=== PATIENT | male | born 1955 | race Caucasian/White ===

== ENCOUNTER 2023-07-20 08:55 | Outpatient (OUT) | payer MEDICARE, OTHER, SELFPAY ==
--- NOTE | 2023-07-20 09:14 | ECG_ITS ---
[facility] Test Date: 2023-07-20 Pat Name: GABRIEL BRAMBILA Department: Room: - Gender: Male Manager Of Manufacturing: : 1955 Requested By: [id number] Order Number: [id number] Reading MD: ISA CAMARA Measurements Intervals [place] Rate: 60 P: 62 GA: 142 QRS: 16 QRSD: 100 T: 21 QT: 392 QTc: 392 Interpretive Statements SINUS RHYTHM LOW QRS VOLTAGE IN EXTREMITY LEADS [QRS DEFLECTION < 0.5 mV IN LIMB LEADS] No previous ECG available for comparison Electronically Signed On 07-21-2023 6:49:48 EDT by ISA CAMARA
[2023-07-20 09:44] LABS: Basophils Absolute Auto 0.1 10^3/uL (0.0-0.1); Basophils Percent Auto 0.9 % (0.2-2.0); Eosinophils Absolute Auto 0.3 10^3/uL (0.0-0.7); Eosinophils Percent Auto 3.8 % (0.9-7.0); Hematocrit 42.7 % (42.0-54.0); Hemoglobin 13.9 g/dL (14.0-18.0); Immature Granulocytes Abs Auto 0.01 10^3/uL (0.00-0.03); Immature Granulocytes Pct Auto 0.2 % (0.0-0.5); Lymphocytes Percent Auto 29.7 % (20.5-60.0); Mean Corpuscular HGB Conc 32.6 g/dL (29.9-35.2); Mean Corpuscular Hemoglobin 28.8 pg (25.9-34.0); Mean Corpuscular Volume 88.4 fL (80.0-94.0); Monocytes Absolute Auto 0.5 10^3/uL (0.3-0.8); Monocytes Percent Auto 7.3 % (1.7-12.0); Neutrophils Absolute Auto 3.8 10^3/uL (1.4-6.5); Neutrophils Percent Auto 58.1 % (43.0-75.0); Platelet Count 229 10^3/uL (150-450); Red Blood Count 4.83 10^6/uL (4.70-6.10); Red Cell Distribution Width 12.7 % (11.0-15.0); White Blood Count 6.6 10^3/uL (4.0-11.0)
[2023-07-20 09:59] LABS: BUN Creatinine Ratio 15.2; Calcium 8.6 mg/dL (8.5-10.1); Carbon Dioxide 27.9 mmol/L (21.0-32.0); Chloride 103 mmol/L (98-107); Estimated GFR (African America >60 (>=60); Estimated GFR (Non-African Ame >60 (>=60); Glucose 138 mg/dL (74-106); Potassium 3.9 mmol/L (3.5-5.1); Sodium 138 mmol/L (136-145)
== END 2023-07-20 08:56 | disposition home or self-care (01) ==
PROVIDERS: Visit Provider Urology
DX: Z01.810 Encounter for preprocedural cardiovascular examination (principal); Z01.812 Encounter for preprocedural laboratory examination; R97.20 Elevated prostate specific antigen [PSA]; E11.9 Type 2 diabetes mellitus without complications
CPT/HCPCS: 80048; 85025; 93005

== ENCOUNTER 2023-07-29 12:43 | Day surgery (SDC) | payer MEDICARE, OTHER, SELFPAY ==
[2023-07-20 09:29] VITALS: BP 124/71; PULSE 62; RESP 14; TEMP 36.2; O2SAT 95; BMI 27.1
[2023-07-29 12:46] VITALS: BP 163/83; PULSE 61; RESP 18; TEMP 36.6; O2SAT 97; BMI 26.6
[2023-07-29] MEDS: LACTATED RINGER'S SOLUTION 1,000 ML 50 ML IV (13:05)
[2023-07-29] MEDS: CEFAZOLIN SODIUM/DEXTROSE,ISO 2 GM/50 ML PIGGYBACK IV (14:05)
--- NOTE | 2023-07-29 14:21 | PM.URSON ---
Urology Surgery Operative Note Operative Note Procedure Date: 07/29/23 Time Out Performed: yes Pre-op Diagnosis: 1. Elevated PSA 2. Abnormal MRI Post-op Diagnosis: same as pre-op Procedures performed: 1. MRI fusion prostate biopsy, transperineal approach 2. Ultrasound for needle prostate biopsy, transperineal approach 3. Transrectal ultrasound of prostate and seminal vesicles 4. Nerve block of prostate Anesthesia: MAC (Job Conn RACE RELATIONS ADVISER) Primary Surgeon: Sonal Ocampo Complications: none Estimated blood loss (mL): 1 Findings: BONNIE benign, mildly enlarged. No discrete hypoechoic lesions. SVs wnl. SLAUD slightly left midline anterior apex. Volume 30.3 cc (4.9 x 2.8 x 4.2 cm). [facility] radiologists calculated volume 28 cc ([facility] MRI volume 57cc). Uneventful biopsy per below. Specimens: 1. Right posterior medial (2 cores) 2. Right posterior lateral (2 cores) 3. Right base (2 cores) 4. Right anterior lateral (2 cores) 5. Right anterior medial (2 cores) 6. Left anterior medial (2 cores) 7. Left anterior lateral (2 cores) 8. Left base (2 cores) 9. Left posterior lateral (2 cores) 10. Left posterior medial (2 cores) 11. 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 MP-MRI prostate 06/30/23 showed PIRADS 4 lesion in the transition zone, apex. Prostate volume 57 ml. Prior TRUS prostate biopsy 07/[address] Garcia showed HGPIN in left apex, volume 28 cc at that time. After discussion of risks/benefits of management options and biopsy approaches, he elected to proceed with MRI fusion transperineal prostate biopsy. Risks were discussed to include but not limited to bleeding, pain, infection, damage to surrounding structures, hematuria, difficulty urinating, ecchymosis, swelling, injury from positioning, and need for additional procedures. Detailed description of Procedure: After informed consent was obtained, the patient was brought to the operating suite and transferred onto the operating table in supine position. Sequential compression devices were placed on bilateral lower extremities. He received the appropriate dose of preoperative IV antibiotics (Cefazolin 2 g) and MAC was induced. He was positioned in the dorsal lithotomy position with scrotum secured out of the perineum with tape, and the appropriate pressure points padded, prepped and draped in the usual fashion for this procedure. An operative timeout was performed confirming the patient's identity, procedure and safety checks. A digital rectal exam was performed noting findings as above. The [employer]umpTop UroNav MRI fusion biopsy system was set up over the patient's pelvis for transperineal approach of prostate biopsy. A well lubricated biplane transrectal ultrasound probe was inserted into the rectum and the prostate was aligned. The gland was visualized fully in axial and sagittal views to allow for identification of anatomy, volume and location of the urethra as noted in findings. The Precision Point device was placed on the ultrasound probe for transperineal approach. The skin followed by periprostatic local anesthetic lidocaine 1% was delivered. After rendering of real-time images with the preoperative MRI prostate, the UroNav fusion biopsy system was used to target the region of interest. Four core needle biopsies were obtained from the region of interest. Thereafter two biopsies were obtained in a systematic fashion from 10 regions of the prostate including the medial and lateral aspects of the anterior and posterior prostate, as well as base of the right and left lobes. The ultrasound probe was removed and the perineum was cleaned and dressed with antibiotic ointment, fluffs and scrotal support. Adequate hemostasis was achieved. The patient was awakened from anesthesia and sent to PACU in stable condition. Plan: Void prior to discharge home. Follow up in 1-2 weeks for pathology review. Other Provider present: No Post Operative care instructions: see discharge instructions
[2023-07-29] MEDS: BACITRACIN OINTMENT 28.4 GM TUBE 1 APPLIC TOPICAL (14:40)
[2023-07-29] MEDS: LIDOCAINE HCL 1% 100 MG/10 ML MDV INJ (14:40)
[2023-07-29 14:55] VITALS: BP 104/68; PULSE 55; RESP 14; TEMP 36.1; O2SAT 95
[2023-07-29 15:10] VITALS: BP 131/92; PULSE 64; RESP 16; O2SAT 95
[2023-07-29 15:25] VITALS: BP 141/88; PULSE 57; RESP 14; O2SAT 96
--- OUTSIDE RECORDS SUMMARY | 2023-09-08 14:22 | XMS_ITS | CCD ---
Author Name Unknown Address [address] [place] [address] Organization [facility] Care Team Providers Care Dockmaster Name Role Phone Hank MARTINEZ Primary Care Physician Hank Martinez MD Primary Care Provider [phone] HANK MARTINEZ Primary Care Unavailable CHRISS PORTER Attending Unavailable MD Sonal Ocampo Attending Provider [phone] MD Aston Martinez Primary Care Provider [phone] MD Sonal Ocampo Attending Provider MD Aston Martinez Primary Care Provider [phone] Sonal Ocampo Admitting Unavailable Sonal Ocampo Attending Unavailable Aston Martinez Primary Care Unavailable Chun Sal Attending Unavailable Sonal Ocampo Referring Unavailable Aston Martinez Primary Care Unavailable Chun Sal Admitting Unavailable Sonal Ocampo. Admitting Unavailable Sonal Ocampo Attending Unavailable Sonal Ocampo Attending Unavailable Pawel GARCIA Attending Unavailable Sonal Ocampo Attending Unavailable Sonal Ocampo Attending Unavailable Sonal Ocampo Attending Unavailable Pawel GARCIA Attending Unavailable Pawel GARCIA Admitting Unavailable Allergies Allergy Classification Reported Allergen(s) Allergy Type Date of Onset Reaction(s) Facility (1 source) Unable to Assess Drug allergy (disorder) [address] [place] [address] Repository (1 source) No Known Medication Allergies; Translations: [No Known Medication Allergies] Propensity to adverse reactions (disorder) [facility] Repository Medications Current Medications Medication Drug Class(es) Dates Sig (Normalized) Sig (Original) ciprofloxacin 500 mg oral tablet (2 sources) Quinolone Antimicrobial Start: 07-01-2022 take 1 tablet by mouth twice daily Cipro 500 mg Tab 500 mg = 1 tab(s), Oral, BID, start 3 days prior to procedure., # 14 tab(s), Refills(s) 0, Pharmacy: [facility] #[id number], 181, cm, 07/01/22 10:32:00 EDT, Height/Length Dosing, 87.7, kg, 07/01/22 10:32:00 EDT, Weight Dosing Start Date: 07/01/22 Status: Ordered tadalafil 20 mg oral tablet (8 sources) Phosphodiesterase 5 Inhibitor Start: 12-24-2020 take 1 tablet by mouth once daily as needed Cialis 20 mg Tab 20 mg = 1 tab(s), Oral, Daily, PRN for erectile dysfunction, as needed for ED, # 9 tab(s), Refills(s) 1, Pharmacy: [facility], 181.6, cm, 12/24/20 13:21:00 EDT, Height/Length Dosing, 94.4, kg, 12/24/20 13:21:00 EDT, Weight Dosing Start Date: 12/24/20 Status: Ordered Triamcinolone (8 sources) Corticosteroid Start: 05-20-2022 triamcinolone topical 0.5% cream 1 steve, Topical, BID, 15 gram, Refill(s) 1, [facility] #[id number], 181, cm, 05/20/22 14:52:00 EDT, Height/Length Dosing, 87.7, kg, 05/20/22 14:52:00 EDT, Weight Dosing Start Date: 05/20/22 Status: Ordered Start: 05-20-2022 triamcinolone topical 0.5% cream 1 steve, Topical, BID, 15 gram, Refill(s) 1, [facility] #[id number], 181, cm, 05/20/22 14:52:00 EDT, Height/Length Dosing, 87.7, kg, 05/20/22 14:52:00 EDT, Weight Dosing Start Date: 05/20/22 Status: Ordered Completed/Discontinued Medications Medication Drug Class(es) Dates Sig (Normalized) Sig (Original) 10 ml lidocaine hydrochloride 10 mg/ml injection (1 source) Antiarrhythmic, Amide Local Anesthetic Start: 12-23-2022 End: 12-23-2022 lidocaine 1 % injection 10 mL Problems Problem Classification Problem Date Documented Date Episodic/Chronic Allergic reactions (9 sources) Atopic dermatitis; Translations: [Atopic dermatitis, unspecified] Onset: 05-20-2022 Chronic Cancer of prostate (6 sources) Malignant neoplasm of prostate; Translations: [Malignant tumor of prostate] Onset: 08-10-2023 Chronic Hyperplasia of prostate (9 sources) Benign prostatic hypertrophy without outflow obstruction; Translations: [Benign prostatic hyperplasia without lower urinary tract symptoms] Onset: 05-20-2022 Chronic Open wounds of extremities (2 sources) Laceration of left wrist; Translations: [Laceration without foreign body of left wrist, initial encounter] Onset: 12-23-2022 Episodic Other male genital disorders (14 sources) Male erectile dysfunction, unspecified; Translations: [Erectile dysfunction] Onset: 05-19-2022 Chronic Other male genital disorders (7 sources) Prostatic intraepithelial neoplasia; Translations: [Prostatic intraepithelial neoplasia] Onset: 08-12-2022 Episodic Other nutritional; endocrine; and metabolic disorders (10 sources) Overweight; Translations: [Overweight] Onset: 05-19-2022 Episodic Other nutritional; endocrine; and metabolic disorders (9 sources) Overweight in adulthood with body mass index of 25 or more but less than 30; Translations: [Body mass index (BMI) 26.0-26.9, adult] Onset: 05-20-2022 Episodic Other screening for suspected conditions (not mental disorders or infectious disease) (20 sources) Encounter for screening for malignant neoplasm of prostate; Translations: [Screening for malignant neoplasm done] Onset: 05-19-2022 Episodic Unclassified (20 sources) Patient encounter status 12-24-2020 Unclassified (8 sources) Seborrheic keratosis 12-24-2020 Unclassified (3 sources) Non-smoker 06-01-2023 Results Test Name Value Interpretation Reference Range Facil ity Consultation Noteon 08-28-20 Consultation Note [id number] Normal [facility] Lab Reportson 08-25-2023 Lab Reports [id number] IFF Normal [facility] Pathology Noteon 08-17-2023 Pathology Note [id number] 0TIFF [facility] Screenson 08-12-2023 Screens [id number] IFF Normal [facility] Screens [id number] IFF Normal [facility] Formson 08-11-2023 Forms [id number] F [facility] Ambulatory Visit Summaryon 1 10-10-2022 Ambulatory Visit Summary GABRIEL RIVERA :1955 Visit Date:08/10/2023 Ambulatory Visit Instructions Your Diagnosis Prostate cancer PIN (prostatic intraepithelial neoplasia) Erectile dysfunction Your Care Team Attending Physician - Sonla Ocampo MD Primary Care Physician - Hank MARTINEZ MD This Is Your Medications List Contact prescribing physician if questions or concerns tadalafil (Cialis 20 mg Tab) triamcinolone topical (triamcinolone topical 0.5% cream) Procedures Performed Transrectal biopsy of prostate using ultrasound (US) guidance (07/23/2022), Colonoscopy (01/25/2021), None. Discharge Vitals Heart Rate (Peripheral) 64 Blood Pressure 139/81 Height 181 cm Height 71 in Weight 87.7 kg Weight 192.94 lb BMI 26.77 What to do next Scheduled Follow-Up Appointments Thursday 12:30 PM EST With: Sonal Ocampo MD Where: [facility] Patient Educationon 08-10-20 Patient Education Oncology Prostate Cancer The prostate is a small gland that produces fluid that makes up semen (seminal fluid). It is located below the bladder in men, in front of the rectum. Prostate cancer is the abnormal growth of cells in the prostate gland. What are the causes? The exact cause of this condition is not known. What increases the risk? You are more likely to develop this condition if: ? You are 65 years of age or older. ? You have a family history of prostate cancer. ? You have a family history of breast and ovarian cancer. ? You have genes that are passed from parent to child (inherited), such as BRCA1 and BRCA2. ? You have Daniels syndrome. men and men of descent are diagnosed with prostate cancer at higher rates than other men. The reasons for this are not well understood and are likely due to a combination of genetic and environmental factors. What are the signs or symptoms? Symptoms of this condition include: ? Problems with urination. This may include: ? A weak or interrupted flow of urine. ? Trouble starting or stopping urination. ? Trouble emptying the bladder all the way. ? The need to urinate more often, especially at night. ? Blood in urine or semen. ? Persistent pain or discomfort in the lower back, lower abdomen, or hips. ? Trouble getting an erection. ? Weakness or numbness in the legs or feet. How is this diagnosed? This condition can be diagnosed with: ? A digital rectal exam. For this exam, a health care provider inserts a gloved finger into the rectum to feel the prostate gland. ? A blood test called a prostate-specific antigen (PSA) test. ? A procedure in which a sample of tissue is taken from the prostate and checked under a microscope (prostate biopsy). ? An imaging test called transrectal ultrasonography. Once the condition is diagnosed, tests will be done to determine how far the cancer has spread. This is called staging the cancer. Staging may involve imaging tests, such as a bone scan, CT scan, PET scan, or MRI. Stages of prostate cancer The stages of prostate cancer are as follows: ? Stage 1 (I). At this stage, the cancer is found in the prostate only. The cancer is not visible on imaging tests, and it is usually found by accident, such as during prostate surgery. ? Stage 2 (II). At this stage, the cancer is more advanced than it is in stage 1, but the cancer has not spread outside the prostate. ? Stage 3 (III). At this stage, the cancer has spread beyond the outer layer of the prostate to nearby tissues. The cancer may be found in the seminal vesicles, which are near the bladder and the prostate. ? Stage 4 (IV). At this stage, the cancer has spread to other parts of the body, such as the lymph nodes, bones, bladder, rectum, liver, or lungs. Prostate cancer grading Prostate cancer is also graded according to how the cancer cells look under a microscope. This is called the Rocio score and the total score can range from 6?10, indicating how likely it is that the cancer will spread (metastasize) to other parts of the body. The higher the score, the greater the likelihood that the cancer will spread. ? [place] 6 or lower: This indicates that the cancer cells look similar to normal prostate cells (well differentiated). ? [place] 7: This indicates that the cancer cells look somewhat similar to normal prostate cells (moderately differentiated). ? [place] 8, 9, or 10: This indicates that the cancer cells look very different than normal prostate cells (poorly differentiated). How is this treated? Treatment for this condition depends on several factors, including the stage of the cancer, your age, personal preferences, and your overall health. Talk with your health care provider about treatment options that are recommended for you. Common treatments include: ? Observation for early stage prostate cancer (active surveillance). This involves having exams, blood tests, and in some cases, more biopsies. For some men, this is the only treatment needed. ? Surgery. Types of surgeries include: ? Open surgery (radical prostatectomy). In this surgery, a larger incision is made to remove the prostate. ? A laparoscopic radical prostatectomy. This is a surgery to remove the prostate and lymph nodes through several small incisions. It is often referred to as a minimally invasive surgery. ? A robotic radical prostatectomy. This is laparoscopic surgery to remove the prostate and lymph nodes with the help of robotic arms that are controlled by the surgeon. ? Cryoablation. This is surgery to freeze and destroy cancer cells. ? Radiation treatment. Types of radiation treatment include: ? External beam radiation. This type aims beams of radiation from outside the body at the prostate to destroy cancerous cells. ? Brachytherapy. This type uses radioactive needles, seeds, wires, or tubes that are implanted into the prostate gland. Like external be (more content not included)... Normal [facility] Urology Office/Clinic Noteon 08-10-2023 Urology Office/Clinic Note Chief Complai nt fu to mri HPI Staff 68 yea old mal here for F/U to MRI fusion prostate biopsy done 07/29/23. Previous DX: elevated PSA, PIN (high grade PIN, Lt. apex) and ED. S/P TRUS/BX 07/23/22. Pt. taking Cialis 20mg PRN. Last PSA 9.4 with 9% done 06/05/23 Dysuria: no Incomplete bladder emptying: no Hematuria: no Frequency: no Urgency: no Nocturia: 1x Stream: good stream Leaking: no Post void dripping: no Wearing pads/ Depends: no Urge incontinence: no Stress incontinence: no Incontinence without Sensory Awareness: no Abdominal pain: no Flank pain: no Sexual complaints: no History of Present Illness Tests reviewed: Reviewed MRI of prostate and path report. I have reviewed the previous health record information and history for this patient from Dr. Ocampo. I have reviewed and verified the staff HPI to be accurate for this encounter. There have been no associated fever, chills, flank pain, or blood in the urine. Denies any urinary infections since last encounter. Review of Systems PHQ Score Initial Depression Screen Score: 0 SCORE ROS - Provider Constitutional: denies weight loss, denies hot flashes. Eyes: denies eye problems. Gastrointestinal: denies nausea, denies vomiting. Cardiovascular: denies chest pain or angina. Integumentary: no dryness Musculoskeletal: denies musculoskeletal symptoms. ENMT: denies otolaryngeal symptoms. Respiratory: no shortness of breath. Heme/Lymph: denies easy bleeding tendency, denies easy bruising tendency. Psychiatric: no confusion, no anxiety. Genitourinary: See HPI. Physical Exam Vitals & Measurements HR: 64(Peripheral) BP: 139/81 HT: 71 in HT: 181 cm WT: 87.7 kg WT: 192.94 lb BMI: 26.77 General Appearance: alert, no distress, well nourished, well developed male. Genitourinary: Flank Pain: none. Bladder: nonpalpable. Assessment/Plan 68 year old healthy male former [facility] patient with hx of elevated PSA and HGPIN Denies hx of heart attack or stroke, not taking any blood thinners. Pt here with today Portions of this record may have been created with voice recognition artificial intelligence software, specifically [employer], [employer] and or [employer] Substitutions may have occurred due to the inherent limitations of voice recognition and artificial intelligence software. 1. Prostate cancer (C61: Malignant neoplasm of prostate) S/p TRUS/bx 07/23/22 [facility]WR - path negative. Prostate volume 28 cc PSA: 05/27/22 - 6.1 & 11% 03/03/23 - 9.8 & 9% 06/05/23 - 9.4 & 9% IPSS 5 (4) No UA provided today. No current issues with urination. Denies family hx of prostate cancer. Mother had ovarian cancer. MRI prostate 06/29/23 prostate volume 57 mL. Lesion involving the transitional zone at the level of the apex measuring 9 x 9 mm. PI-RADS 4. Prostate volume 28-30 cc ([facility] MRI volume incorrect) S/p MRI fusion prostate bx 07/29/23: GG2+ SALUD midline apex, transitional zone 68 year-old gentleman here to discuss his prostate biopsy results on 07/29/23. He has newly diagnosed cT1c disease, [place]a 7 (3+4), Grade group 2, prostate cancer in 1/21 cores (SALUD apex midline transitional zone), 30% core involvement, pattern 4 is 10% initial PSA of 9.4. I explained the D'Kelly criteria for risk stratification of prostate cancer which indicates that he has favorable intermediate risk disease. I educated him on the national comprehensive cancer network guidelines on the treatment of prostate cancer which indicates his options include: active surveillance, surgery, and radiation therapy. I discussed the advantages of each of his options at length. Active surveillance involves monitoring the disease with the intention of curative intervention in the future if more concerning findings are seen. This involves PSAs every 6-12 months, rectal exams every 12 months, confirmatory prostate biopsy within 1-2 years of diagnosis if MRI used (6-12 months if no MRI prostate) and MP MRI prostate every 1-2 years initially. He understands the uncertainties with this approach including the risk of understaging, undergrading and therefore under-treatment. However, this option is associated with preserved quality of life due to its avoidance of most treatment related side effects. I discussed radical prostatectomy with pelvic lymph node dissection including robot-assisted laparoscopic and open approaches. I showed him the [facility] nomogram which estimates his risk of organ confined disease to be 75%, extraprostatic extension 24%, lymph node metastasis 2%, and seminal vesical invasion 1%. He understood the risks of the procedure include but are not be limited to bleeding, need for transfusion, pain, infection, injury to the bladder, ureter, urethra, urinary sphincter, surrounding tissues, injury to the bowels including the rectum, small intestines, permanent erectile dysfunction, incontinence, urinary leakage, bladder neck contracture or anastomotic stricture, bowel ob (more content not included)... Normal [facility] Comment on above: Result Comment: Elec tronically Signed By: Sonal Ocampo MD\.br\Date and Time Signed: 08/10/23 19:56 EST\.br\Electronically Co-Signed By: Cecilia Latham\.br\Date and Time Co-Signed: 08/10/23 16:54 EST\.br\Electronically Co-Signed By: Cecilia Latham\.br\Date and Time Co-Signed: 08/10/23 16:56 EST Operative Reporton 3 Operative Report [id number] [facility] Lab Reportson 07-21-2023 Lab Reports [id number] IFF [facility] RAD - MRI Reporton 3 RAD - MRI Report [id number] [facility] MR prostate wo/w conon 06-30 MR prostate wo/w con [facility] [place] [address] MRI Report Signed Patient: Gabriel Rivera MR#: [id number] : 1955 Acct:[id number] Age/Sex: 68 / M ADM Date: 06/29/23 Loc: MR Room: Type: [facility] Attending Dr: Sonal Ocampo MD Copies to: Sonal Ocampo MD Ordering Provider: Sonal Ocampo MD Date of Service: 06/29/23 MR/MR prostate wo/w con: R97.20 EXAMINATION: MR prostate wo/w con HISTORY: Elevated PSA COMPARISON: NONE TECHNIQUE: Multiparametric imaging of the prostate gland was performed with IV contrast. FINDINGS: Prostate Dimensions: 5.1 x 4.1 x 5.2 cm Prostate Volume: 57 mL Peripheral Zone: Heterogenous inT2 signal suggestive of prior prostatitis. No suspicious T2 or ADC map abnormality is identified to suggest prostate malignancy. Central/Transitional Zone: BPH changes. Ill-defined T2 hypointensity is identified involving the transitional zone at the level of the apex measuring approximately 9 x 9 mm with restricted diffusion and low ADC value. Please see series 5 image 20, series 7 50 image 18 and series 700 image 18. Seminal Vesicles: Unremarkable Neurovascular bundles: Unremarkable. Lymphadenopathy: No evidence of lymphadenopathy. Bladder: No focal lesion. Bowel: The visualized bowel is without acute abnormality. Peritoneal Cavity: No free fluid. Bones: No suspicious bony lesion. MR/MR prostate wo/w con IMPRESSION: Ill-defined T2 hypointensity is identified involving the transitional zone at the level of the apex measuring approximately 9 x 9 mm with restricted diffusion and low ADC value. Please see series 5 image 20, series 7 50 image 18 and series 700 image 18.PI-RADS 4. Targeting of this area on biopsy is recommended. Impression dictated by: Kristofer Cameron Jr., D.O.06/30/2023 9:37 AM Dictation Location: [place] [address] Transcribed By: [facility] 06/30/23936 Dictated By: Kristofer Cameron Jr, DO 06/30/23926 Signed By: 06/30/23936 [facility] Creatinine (Bld) [Mass/Vol]O rdered By: Sonal Ocampo on 06-29-2023 Creatinine [Mass/Vol] 1.2 mg/dL 0.6-1.3 [facility] Comment on above: ER/ESD physician is notified/shown all ISTAT results.Critical values may be confirmed by laboratory testing ifdeemed necessary by ER attending doctor. ISTAT XRay CREon 06-29-2023 Creatinine [Mass/Vol] 1.2 mg/dL Normal 0.6-1.3 [facility] Comment on above: Result Comment: ER/E SD physician is notified/shown all ISTAT results. Critical values may be confirmed by laboratory testing if deemed necessary by ER attending doctor. Performed By: #### I SCRE #### [facility] [address] [place] [address] ISTAT GFR > 60.0 Normal [facility] Comment on above: Result Comment: PERF ORMED BY: [facility] [address] [place] [address] PATHOLOGIST FOOD CHEMIST ROBERTO GONSALEZ M.D. Performed By: #### I SCRE #### [facility] [address] No Panel InformationOrdered By: Sonal Ocampo on 06-29-2023 Bedside Estimated GFR (eGFR) > 60.0 [facility] Screenson 06-02-2023 Screens [id number] D:127 Normal [facility] Screens [id number] D:127 Normal [facility] Ambulatory Visit Summaryon 0 06-01-2023 Ambulatory Visit Summary GABRIEL RIVERA :1955 Visit Date:06/01/2023 Ambulatory Visit Instructions Your Diagnosis Elevated PSA PIN (prostatic intraepithelial neoplasia) Erectile dysfunction Tests Performed Urnls Dip Stick Auto w/o Microscopy POC 53444 MRI Pelvis (Soft Tissue) w/ + w/o contrast -- Results Pending -- Please visit your patient portal for your results or contact your primary care physician. Your Care Team Attending Physician - Sonal Ocampo MD Primary Care Physician - Hank MARTINEZ MD This Is Your Medications List Contact prescribing physician if questions or concerns ciprofloxacin (Cipro 500 mg Tab) tadalafil (Cialis 20 mg Tab) triamcinolone topical (triamcinolone topical 0.5% cream) Procedures Performed Transrectal biopsy of prostate using ultrasound (US) guidance (07/23/2022), Colonoscopy (01/25/2021), None. Discharge Vitals Heart Rate (Peripheral) 76 Blood Pressure 135/79 Height 181 cm Height 71 in Weight 87.7 kg Weight 192.94 lb BMI 26.77 What to do next You Need to Schedule the Following Appointments Follow Up with Sonal Ocampo MD, URL, URO When: Where: Medications What How Much When Instructions Unchanged ciprofloxacin (Cipro 500 mg Tab) 1 Tablets By Mouth 2 times a day start 3 days prior to procedure. Contact prescribing physician if questions or concerns Unchanged tadalafil (Cialis 20 mg Tab) 1 Tablets By Mouth Every day as needed for for erectile dysfunction as needed for ED Contact prescribing physician if questions or concerns Unchanged triamcinolone topical (triamcinolone topical 0.5% cream) 1 Application Topical 2 times a day Contact prescribing physician if questions or concerns Test Results Urnls Dip Stick Auto w/o Microscopy POC 12899 (06/01/2023) Bilirubin Urine Dipstick - Negative Blood Urine Dipstick - Trace-intact Glucose Urine Dipstick - Negative Ketones Urine Dipstick - Negative Leukocytes Urine Dipstick - Negative Nitrite Urine Dipstick - Negative Protein Urine Dipstick - Negative Specific [place] Urine Dipstick - 1.025 Urine Appearance Urine Dipstick - Clear Urine Color Urine Dipstick - Yellow Urobilinogen Urine Dipstick - Normal 0.2-1 EU/dl pH Urine Dipstick - 5.5 Allergies No Known Allergies No Known Medication Allergies Problems Ongoing - Any problem that you are currently receiving treatment for. Atopic dermatitis BMI 26.0-26.9,adult BPH without urinary obstruction Diabetes mellitus screening Elevated prostate specific antigen (PSA) Elevated PSA Encounter for lipid screening for cardiovascular disease Erectile dysfunction Non-smoker Overweight PIN (prostatic intraepithelial neoplasia) Prostate cancer screening Seborrheic keratosis Education [employer] Prostate Cancer Screening Prostate cancer screening is testing that is done to check for the presence of prostate cancer in men. The prostate gland is a walnut-sized gland that is located below the bladder and in front of the rectum in males. The function of the prostate is to add fluid to semen during ejaculation. Prostate cancer is one of the most common types of cancer in men. Who should have prostate cancer screening? Screening recommendations vary based on age and other risk factors, as well as between the professional organizations who make the recommendations. In general, screening is recommended if: ? You are age 50 to 70 and have an average risk for prostate cancer. You should talk with your health care provider about your need for screening and how often screening should be done. Because most prostate cancers are slow growing and will not cause , screening in this age group is generally reserved for men who have a 10- to 15-year life expectancy. ? You are younger than age 50, and you have these risk factors: ? Having a father, brother, or uncle who has been diagnosed with prostate cancer. The risk is higher if your family member's cancer occurred at an early age or if you have multiple family members with prostate cancer at an early age. ? Being a male who is Black or is of [place] or sub-Saharan descent. In general, screening is not recommended if: ? You are younger than age 40. ? You are between the ages of 40 and 49 and you have no risk factors. ? You are 70 years of age or older. At this age, the risks that screening can cause are greater than the benefits that it may provide. If you are at high risk for prostate cancer, your health care provider may recommend that you have screenings more often or that you start screening at a younger age. How is screening for prostate cancer done? The recommended prostate cancer screening test is a blood test called the prostate-specific antigen (PSA) test. PSA is a protein that is made in the prostate. As you age, your prostate naturally produces more PSA. Abnormally high PSA levels may be caused by: ? Pro (more content not included)... Normal [facility] Patient Educationon 06-01-20 Patient Education Oncology Prostate Cancer Screening Prostate cancer screening is testing that is done to check for the presence of prostate cancer in men. The prostate gland is a walnut-sized gland that is located below the bladder and in front of the rectum in males. The function of the prostate is to add fluid to semen during ejaculation. Prostate cancer is one of the most common types of cancer in men. Who should have prostate cancer screening? Screening recommendations vary based on age and other risk factors, as well as between the professional organizations who make the recommendations. In general, screening is recommended if: ? You are age 50 to 70 and have an average risk for prostate cancer. You should talk with your health care provider about your need for screening and how often screening should be done. Because most prostate cancers are slow growing and will not cause , screening in this age group is generally reserved for men who have a 10- to 15-year life expectancy. ? You are younger than age 50, and you have these risk factors: ? Having a father, brother, or uncle who has been diagnosed with prostate cancer. The risk is higher if your family member's cancer occurred at an early age or if you have multiple family members with prostate cancer at an early age. ? Being a male who is Black or is of [place] or sub-Saharan descent. In general, screening is not recommended if: ? You are younger than age 40. ? You are between the ages of 40 and 49 and you have no risk factors. ? You are 70 years of age or older. At this age, the risks that screening can cause are greater than the benefits that it may provide. If you are at high risk for prostate cancer, your health care provider may recommend that you have screenings more often or that you start screening at a younger age. How is screening for prostate cancer done? The recommended prostate cancer screening test is a blood test called the prostate-specific antigen (PSA) test. PSA is a protein that is made in the prostate. As you age, your prostate naturally produces more PSA. Abnormally high PSA levels may be caused by: ? Prostate cancer. ? An enlarged prostate that is not caused by cancer (benign prostatic hyperplasia, or BPH). This condition is very common in older men. ? A prostate gland infection (prostatitis) or urinary tract infection. ? Certain medicines such as male hormones (like testosterone) or other medicines that raise testosterone levels. A rectal exam may be done as part of prostate cancer screening to help provide information about the size of your prostate gland. When a rectal exam is performed, it should be done after the PSA level is drawn to avoid any effect on the results. Depending on the PSA results, you may need more tests, such as: ? A physical exam to check the size of your prostate gland, if not done as part of screening. ? Blood and imaging tests. ? A procedure to remove tissue samples from your prostate gland for testing (biopsy). This is the only way to know for certain if you have prostate cancer. What are the benefits of prostate cancer screening? ? Screening can help to identify cancer at an early stage, before symptoms start and when the cancer can be treated more easily. ? There is a small chance that screening may lower your risk of dying from prostate cancer. The chance is small because prostate cancer is a slow-growing cancer, and most men with prostate cancer from a different cause. What are the risks of prostate cancer screening? The main risk of prostate cancer screening is diagnosing and treating prostate cancer that would never have caused any symptoms or problems. This is called overdiagnosisand overtreatment. PSA screening cannot tell you if your PSA is high due to cancer or a different cause. A prostate biopsy is the only procedure to diagnose prostate cancer. Even the results of a biopsy may not tell you if your cancer needs to be treated. Slow-growing prostate cancer may not need any treatment other than monitoring, so diagnosing and treating it may cause unnecessary stress or other side effects. Questions to ask your health care provider ? When should I start prostate cancer screening? ? What is my risk for prostate cancer? ? How often do I need screening? ? What type of screening tests do I need? ? How do I get my test results? ? What do my results mean? ? Do I need treatment? Where to find more information ? The [place] [employer]: www.cancer.org ? [place] [employer]: www.auanet.org Contact a health care provider if: ? You have difficulty urinating. ? You have pain when you urinate or ejaculate. ? You have blood in your urine or semen. ? You have pain in your back or in the area of your prostate. Summary ? Prostate cancer is a common type of cancer in men. The prostate gland is located below the bladder and in front of the rectum. This gland adds flu (more content not included)... Normal [facility] Urology Office/Clinic Noteon 06-01-2023 Urology Office/Clinic Note Chief Complaint 3 mo fu HPI Staff 68 year old male here for 3 month follow up with psa Previous Dx: high grade PIN, Elevated psa S/P negative trus bx done 07/23/22, ED Current psa drawn 05/26/23- 9.4 and 9%, Previously 9.8 and 9% drawn 03/03/23 Dysuria: no Incomplete bladder emptying: no Hematuria: no Frequency: no Urgency: no Nocturia: 2x night Stream: good stream Leaking: no Post void dripping: no Wearing pads/ Depends: no Urge incontinence: no Stress incontinence: no Incontinence without Sensory Awareness: no Abdominal pain: no Flank pain: no Sexual complaints: no History of Present Illness Tests reviewed: Reviewed UA and PSA. I have reviewed the previous health record information and history for this patient from Dr. Garcia. I have reviewed and verified the staff HPI to be accurate for this encounter. There have been no associated fever, chills, flank pain, or blood in the urine. Denies any urinary infections since last encounter. Review of Systems PHQ Score Initial Depression Screen Score: 0 ROS - Provider Constitutional: denies weight loss, denies hot flashes. Eyes: denies eye problems. Gastrointestinal: denies nausea, denies vomiting. Cardiovascular: denies chest pain or angina. Integumentary: no dryness Musculoskeletal: denies musculoskeletal symptoms. ENMT: denies otolaryngeal symptoms. Respiratory: no shortness of breath. Heme/Lymph: denies easy bleeding tendency, denies easy bruising tendency. Psychiatric: no confusion, no anxiety. Genitourinary: See HPI. Physical Exam Vitals & Measurements HR: 76(Peripheral) BP: 135/79 HT: 71 in HT: 181 cm WT: 87.7 kg WT: 192.94 lb BMI: 26.77 General Appearance: alert, no distress, well nourished, well developed male. Genitourinary: Flank Pain: none. Bladder: nonpalpable. Assessment/Plan Former [facility] patient with hx of elevated PSA and HGPIN Denies hx of heart attack or stroke, not taking any blood thinners. Portions of this record may have been created with voice recognition artificial intelligence software, specifically [employer], [employer] and or [employer] Substitutions may have occurred due to the inherent limitations of voice recognition and artificial intelligence software. 1. Elevated PSA (R97.20: Elevated prostate specific antigen [PSA]) BONNIE 07/01/22 - 1 cm firm nodule found on the left base S/p TRUS/bx 07/23/22, path negative. Prostate volume 28 cc PSA: 05/27/22 - 6.1 & 11% 03/03/23 - 9.8 & 9% 06/05/23 - 9.4 & 9% IPSS 4, QoL 1. UA today trace-intact blood Denies family hx of prostate cancer Today I reviewed the patients past history including voiding symptoms, PSA history and any prior prostate biopsy information that is available. We discussed the controversies that exist in the field of PSA based cancer testing and the absence of exact correlation of PSA data to the presence or absence of prostate cancer on biopsy. I discussed the production of PSA by the prostate gland as well as common causes of elevated serum PSA including infection, inflammation, BPH and prostate cancer. He understood that his PSA level may also be falsely elevated due to any manipulation/instrumentation around the time of a PSA draw. I discussed the absolute value of PSA as well as PSA velocity and age specific PSA and the implications with the patient. We discussed risks of MRI fusion prostate biopsy approaches including transrectal and transperineal. Risks of the procedure were discussed to include but not be limited to bleeding, pain, infection (higher, including sepsis with transrectal approach), difficulties with urination, injury to the urethra, prostate or bladder or surrounding tissues, injury from positioning on the table, swelling and bruising of the skin, and need for further procedures. Added risk of anesthesia discussed. Given PSA rise over the last year, high PSA density 0.34 and hx HGPIN, recommend proceeding with MRI prostate and biopsy -Schedule MRI of prostate -Will schedule Transperineal prostate bx +/- MRI fusion based on MRI findings under MAC. (Bx regardless of lesion on MRI) 2. 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 Erectile dysfunction (N52.9: Male erectile dysfunction, unspecified) KWAME 14 Cialis 20mg PRN, happy w/ medication -Cont meds PRN I spent 40 minutes today with the patient: reviewing tests in preparation to see and discuss them with the patient, obtaining and reviewing separately obtained history, documenting clinical information in the electronic health records, and care coordination. Time was spent performing a medical exam and evaluation, counseling and educating the patient, and ordering tests and procedures in caring for the patient. Follow-up With When Contact Information Sonal Ocampo MD, URL, URO Additional Instructions: Schedule MRI Patient Education (more content not included)... Normal [facility] Comment on above: Result Comment: Elec tronically Signed By: Sonal Ocampo MD\.br\Date and Time Signed: 06/01/23 16:24 EDT\.br\Electronically Co-Signed By: Cecilia Latham\.br\Date and Time Co-Signed: 06/01/23 14:53 EDT Consent for Treatmenton Consent for Treatment [id number]:127 Normal [facility] PSA Free & Totalon 3 Free PSA [Mass/Vol] 0.8 ng/mL Invalid Interpretation Code [facility] Comment on above: Result Comment: The concentration of free PSA and total PSA determined with assays from different manufacturers can vary due to differences in assay methods and specificity. Values obtained with different director statistical programming's assays cannot be used interchangeably. The methodology used to obtain this result was chemiluminescence using ice's Access Hybritech PSA reagent and Access Hybritech free PSA reagent. Performed By: #### [id number] ####[facility] [id number] [place] [address] Free PSA/Total PSA [Mass fraction] 9.0 % Low > =25.0 [facility] Comment on above: Result Comment: The percentage of free PSA is lower in serum samples from patients with prostate cancer than in serum samples from patients with normal prostate or benign disease. Low percentages of free PSA are established as indicators of prostate cancer. The 25% free PSA cutoff detected 95% of cancers while avoiding 20% of Unnecessary biopsies. DWIGHT, 1998; 279:1542-7 Performed By: #### 1 [id number] ####[facility] [id number] [place] [address] Prostate specific Ag [Mass/Vol] 9.4 ng/mL High 0.1- 3.5 [facility] Comment on above: Result Comment: The concentration of PSA determined by different manufacturers can vary due to differences in assay methods and reagent specificity. Values obtained from different assay methods cannot be used interchangeably. The methodology used for this result was chemiluminescence using ice's Access Hybritech PSA reagent. Performed By: #### 1 [id number] ####[facility] [id number] [place] [address] Reminderson 03-11-2023 Reminders - From: Dianna Regalado To: - Clinical; Sent: 03/03/2023 12:33:01 EDT Show up: 03/10/2023 12:32:00 EDT Subject: Reminder Message Reminder Message Please Remember to:_call pt with PSA results PATIENT RELATED REMINDER:_ ( ) Call Patient ( ) Ask Patient to ( ) Call Relative ( ) Schedule Patient ( ) Follow up on Results ( ) Other: PROVIDER RELATED REMINDER:_ ( ) [employer] Lecturer ( ) Call Pharmacy ( ) Call Lab ( ) Other: Special Instructions:_ Comments:_ From: Susanna Colón ([place] - Clinical) To: [facility] - Results; Sent: 03/11/2023 14:14:01 EDT ! Show up: 03/11/2023 14:13:00 EDT Per EMR, has been addressed. Normal [facility] Ambulatory Visit Summaryon 0 03-04-2023 Ambulatory Visit Summary GABRIEL RIVERA :1955 Visit Date:06/02/2022 Ambulatory Visit Instructions Your Care Team Primary Care Physician - Hank MARTINEZ MD This Is Your Medications List ciprofloxacin (Cipro 500 mg Tab) tadalafil (Cialis 20 mg Tab) triamcinolone topical (triamcinolone topical 0.5% cream) Procedures Performed Transrectal biopsy of prostate using ultrasound (US) guidance (07/23/2022), Colonoscopy (01/25/2021), None. What to do next You Need to Complete the Following PSA Free & Total, Blood, Routine collect, 01/19/23, Order for future visit, Lab Collect, PIN (prostatic intraepithelial neoplasia) Normal [facility] Ambulatory Visit Summaryon 0 03-03-2023 Ambulatory Visit Summary GABRIEL RIVERA :1955 Visit Date:03/03/2023 Ambulatory Visit Instructions Your Diagnosis PIN (prostatic intraepithelial neoplasia) Elevated PSA Erectile dysfunction Tests Performed Urnls Dip Stick Auto w/o Microscopy POC 61469 Your Care Team Attending Physician - SHAMIR LIAO, Pawel Lu Primary Care Physician - Hank MARTINEZ MD This Is Your Medications List Contact prescribing physician if questions or concerns ciprofloxacin (Cipro 500 mg Tab) tadalafil (Cialis 20 mg Tab) triamcinolone topical (triamcinolone topical 0.5% cream) Procedures Performed Transrectal biopsy of prostate using ultrasound (US) guidance (07/23/2022), Colonoscopy (01/25/2021), None. Discharge Vitals Heart Rate (Peripheral) 58 Respiratory Rate 16 Blood Pressure 144/92 Height 181 cm Height 71 in Weight 87.7 kg Weight 192.94 lb BMI 26.77 What to do next You Need to Schedule the Following Appointments Follow Up with SHAMIR LIAO, LOGAN Galarza When: In 6 months Comments: PSA F&T Where: [address] [place] [address] [place] [address]- [phone] You Need to Complete the Following PSA Free & Total, Blood, Routine collect, 03/03/23, Order for future visit, Lab Collect, PIN (prostatic intraepithelial neoplasia) Normal Erectile dysfunction, Required & Missing, Print Label By Order Location\.br\ Medications\.br\ What How Much When Instructions\.br\ Unchanged ciprofloxacin (Cipro 500 mg Tab) 1 Tablets By Mouth 2 times a day start 3 days prior to procedure. Contact prescribing physician if questions or concerns \.br\ Unchanged tadalafil (Cialis 20 mg Tab) 1 Tablets By Mouth Every day as needed for for erectile dysfunction as needed for ED Contact prescribing physician if questions or concerns \.br\ Unchanged triamcinolone topical (triamcinolone topical 0.5% cream) 1 Application Topical 2 times a day Contact prescribing physician if questions or concerns \.br\ Test Results\.br\ Urnls Dip Stick Auto w/o Microscopy POC 00562 (03/03/2023)\.br\ Blood Urine Dipstick - Negative\.br\ Glucose Urine Dipstick - Negative\.br\ Ketones Urine Dipstick - Negative\.br\ Leukocytes Urine Dipstick - Negative\.br\ Nitrite Urine Dipstick - Negative\.br\ Protein Urine Dipstick - Negative\.br\ Specific [place] Urine Dipstick - 1.015\.br\ Urine Appearance Urine Dipstick - Clear\.br\ Urine Color Urine Dipstick - Yellow\.br\ Urobilinogen Urine Dipstick - Normal 0.2-1 EU/dl\.br\ pH Urine Dipstick - 7\.br\ Allergies\.br\ No Known Allergies\.br\ No Known Medication Allergies\.br\ Problems\.br\ Ongoing - Any problem that you are currently receiving treatment for.\.br\ Atopic dermatitis\.br\ BMI 26.0-26.9,adult\.br\ BPH without urinary obstruction\.br\ Diabetes mellitus screening\.br\ Elevated prostate specific antigen (PSA)\.br\ Elevated PSA\.br\ Encounter for lipid screening for cardiovascular disease\.br\ Erectile dysfunction\.br\ Overweight\.br\ PIN (prostatic intraepithelial neoplasia)\.br\ Prostate cancer screening\.br\ Seborrheic keratosis\.br\ Education Materials\.br\ Prostate Cancer Screening\.br\ \.br\ Prostate cancer screening is testing that is done to check for the presence of prostate cancer in men. The prostate gland is a walnut-sized gland that is located below the bladder and in front of the rectum in males. The function of the prostate is to add fluid to semen during ejaculation. Prostate cancer is one of the most common types of cancer in men.\.br\ Who should have prostate cancer screening?\.br\ Screening recommendations vary based on age and other risk factors, as well as between the professional organizations who make the recommendations.\.br\ In general, screening is recommended if:\.br\ ? \.br\ You are age 50 to 70 and have an average risk for prostate cancer. You should talk with your health care provider about your need for screening and how often screening should be done. Because most prostate cancers are slow growing and will not cause , screening in this age group is generally reserved for men who have a 10- to 15-year life expectancy.\.br\ ? \.br\ You are younger than age 50, and you have these risk factors:\.br\ ? \.br\ Having a father, brother, or uncle who has been diagnosed with prostate cancer. The risk is higher if your family member's cancer occurred at an early age or if you have multiple family members with prostate cancer at an early age.\.br\ ? \.br\ Being a male who is Black or is of [place] or sub-Saharan descent.\.br\ In general, screening is not recommended if:\.br\ ? \.br\ You are younger than age 40.\.br\ ? \.br\ You are between the ages of 40 and 49 and you have no risk factors.\.br\ ? \.br\ You are 70 years of age or older. At this age, the risks that screening can cause are greater than the benefits that it may provide.\.br\ If you are at high risk for prostate cancer, your health care provider may recommend that you have screenings more often or that you start screening at a younger age.\.br\ How is screening for prostate cancer done?\.br\ The recommended prostate cancer screening test is a blood test called the prostate-specific antigen (PSA) test. PSA is a protein that is made in the prostate. As you age, your prostate naturally produces more PSA. Abnormally high PSA levels may be caused by:\.br\ ? \.br\ Prostate cancer.\.br\ ? \.br\ An enlarged prostate that is not caused by cancer (benign prostatic hyperplasia, or BPH). This condition is very common in older men.\.br\ ? \.br\ A prostate gland infection (prostatitis) or urinary tract infection.\.br\ ? \.br\ Certain medicines such as male hormones (like testosterone) or other medicines that raise testosterone levels.\.br\ A rectal exam may be done as part of prostate cancer screening to help provide information about the size of your prostate gland. When a rectal exam is performed, it should be done after the PSA level is drawn to avoid any effect on the results.\.br\ Depending on the PSA results, you may need more tests, such as:\.br\ ? \.br\ A physical exam to check the size of your prostate gland, if not done as part of screening.\.br\ ? \.br\ Blood and imaging tests.\.br\ ? \.br\ A procedure to remove tissue samples from your prostate gland for testing (biopsy). This is the only way to know for certain if you have prostate cancer.\.br\ What are the benefits of prostate cancer screening?\.br\ ? \.br\ Screening can help to identify cancer at an early stage, before symptoms start and when the cancer can be treated more easily.\.br\ ? \.br\ There is a small chance that screening may lower your risk of dying from prostate cancer. The chance is small because prostate cancer is a slow-growing cancer, and most men with prostate cancer from a different cause.\.br\ What are the risks of prostate cancer screening?\.br\ The main risk of prostate cancer screening is diagnosing and treating prostate cancer that would never have caused any symptoms or problems. This is called overdiagnosisand overtreatment. PSA screening cannot tell you if your PSA is high due to cancer or a different cause. A prostate biopsy is the only procedure to diagnose prostate cancer. Even the results of a biopsy may not tell you if your cancer needs to be treated. Slow-growing prostate cancer may not need any treatment other than monitoring, so diagnosing and treating it may cause unnecessary stress or other side effects.\.br\ Questions to ask your health care provider\.br\ ? \.br\ When should I start prostate cancer screening?\.br\ ? \.br\ What is my risk for prostate cancer?\.br\ ? \.br\ How often do I need screening?\.br\ ? \.br\ What type of screening tests do I need?\.br\ ? \.br\ How do I get my test results?\.br\ ? \.br\ What do my results mean?\.br\ ? \.br\ Do I need treatment?\.br\ Where to find more information\.br\ ? \.br\ The [place] [employer]: www.cancer.org\.br\ ? \.br\ [place] [employer]: www.auanet.org\.br\ Contact a health care provider if:\.br\ ? \.br\ You have difficulty urinating.\.br\ ? \.br\ You have pain when you urinate or ejaculate.\.br\ ? \.br\ You have blood in your urine or semen.\.br\ ? \.br\ You have pain in your back or in the area of your prostate.\.br\ Summary\.br\ ? \.br\ Prostate cancer is a common type of cancer in men. The prostate gland is located below the bladder and in front of the rectum. This gland adds fluid to semen during ejaculation.\.br\ ? \.br\ Prostate cancer screening may identify cancer at an early stage, when the cancer can be treated more easily and is less likely to have spread to other areas of the body.\.br\ ? \.br\ The prostate-specific antigen (PSA) test is the recommended screening test [facility] Consent for Treatment [id number] Normal [facility] PSA Free & Totalon 3 Free PSA [Mass/Vol] 0.9 ng/mL Invalid Interpretation Code [facility] Comment on above: Result Comment: The concentration of free PSA and total PSA determined with assays from different manufacturers can vary due to differences in assay methods and specificity. Values obtained with different director statistical programming's assays cannot be used interchangeably. The methodology used to obtain this result was chemiluminescence using ice's Access Hybritech PSA reagent and Access Hybritech free PSA reagent. Performed By: #### [id number] ####[id number] [place] [address] Free PSA/Total PSA [Mass fraction] 9.0 % Low > =25.0 [facility] Comment on above: Result Comment: The percentage of free PSA is lower in serum samples from patients with prostate cancer than in serum samples from patients with normal prostate or benign disease. Low percentages of free PSA are established as indicators of prostate cancer. The 25% free PSA cutoff detected 95% of cancers while avoiding 20% of Unnecessary biopsies. DWIGHT, 1998; 279:1542-7 Performed By: #### [id number] ####[facility] [id number] [place] [address] Prostate specific Ag [Mass/Vol] 9.8 ng/mL High 0.1- 3.5 [facility] Comment on above: Result Comment: The concentration of PSA determined by different manufacturers can vary due to differences in assay methods and reagent specificity. Values obtained from different assay methods cannot be used interchangeably. The methodology used for this result was chemiluminescence using ice's Access Hybritech PSA reagent. Performed By: #### [id number] ####[facility] [id number] [place] [address] Patient Educationon 03-03-20 23 Patient Education Oncology Prostate Cancer Screening Prostate cancer screening is testing that is done to check for the presence of prostate cancer in men. The prostate gland is a walnut-sized gland that is located below the bladder and in front of the rectum in males. The function of the prostate is to add fluid to semen during ejaculation. Prostate cancer is one of the most common types of cancer in men. Who should have prostate cancer screening? Screening recommendations vary based on age and other risk factors, as well as between the professional organizations who make the recommendations. In general, screening is recommended if: ? You are age 50 to 70 and have an average risk for prostate cancer. You should talk with your health care provider about your need for screening and how often screening should be done. Because most prostate cancers are slow growing and will not cause , screening in this age group is generally reserved for men who have a 10- to 15-year life expectancy. ? You are younger than age 50, and you have these risk factors: ? Having a father, brother, or uncle who has been diagnosed with prostate cancer. The risk is higher if your family member's cancer occurred at an early age or if you have multiple family members with prostate cancer at an early age. ? Being a male who is Black or is of [place] or sub-Saharan descent. In general, screening is not recommended if: ? You are younger than age 40. ? You are between the ages of 40 and 49 and you have no risk factors. ? You are 70 years of age or older. At this age, the risks that screening can cause are greater than the benefits that it may provide. If you are at high risk for prostate cancer, your health care provider may recommend that you have screenings more often or that you start screening at a younger age. How is screening for prostate cancer done? The recommended prostate cancer screening test is a blood test called the prostate-specific antigen (PSA) test. PSA is a protein that is made in the prostate. As you age, your prostate naturally produces more PSA. Abnormally high PSA levels may be caused by: ? Prostate cancer. ? An enlarged prostate that is not caused by cancer (benign prostatic hyperplasia, or BPH). This condition is very common in older men. ? A prostate gland infection (prostatitis) or urinary tract infection. ? Certain medicines such as male hormones (like testosterone) or other medicines that raise testosterone levels. A rectal exam may be done as part of prostate cancer screening to help provide information about the size of your prostate gland. When a rectal exam is performed, it should be done after the PSA level is drawn to avoid any effect on the results. Depending on the PSA results, you may need more tests, such as: ? A physical exam to check the size of your prostate gland, if not done as part of screening. ? Blood and imaging tests. ? A procedure to remove tissue samples from your prostate gland for testing (biopsy). This is the only way to know for certain if you have prostate cancer. What are the benefits of prostate cancer screening? ? Screening can help to identify cancer at an early stage, before symptoms start and when the cancer can be treated more easily. ? There is a small chance that screening may lower your risk of dying from prostate cancer. The chance is small because prostate cancer is a slow-growing cancer, and most men with prostate cancer from a different cause. What are the risks of prostate cancer screening? The main risk of prostate cancer screening is diagnosing and treating prostate cancer that would never have caused any symptoms or problems. This is called overdiagnosisand overtreatment. PSA screening cannot tell you if your PSA is high due to cancer or a different cause. A prostate biopsy is the only procedure to diagnose prostate cancer. Even the results of a biopsy may not tell you if your cancer needs to be treated. Slow-growing prostate cancer may not need any treatment other than monitoring, so diagnosing and treating it may cause unnecessary stress or other side effects. Questions to ask your health care provider ? When should I start prostate cancer screening? ? What is my risk for prostate cancer? ? How often do I need screening? ? What type of screening tests do I need? ? How do I get my test results? ? What do my results mean? ? Do I need treatment? Where to find more information ? The [place] [employer]: www.cancer.org ? [place] [employer]: www.auanet.org Contact a health care provider if: ? You have difficulty urinating. ? You have pain when you urinate or ejaculate. ? You have blood in your urine or semen. ? You have pain in your back or in the area of your prostate. Summary ? Prostate cancer is a common type of cancer in men. The prostate gland is located below the bladder and in front of the rectum. This gland adds flu (more content not included)... Normal [facility] Screenson 03-03-2023 Screens [id number]: 127 Normal [facility] Urology Office/Clinic Noteon 03-03-2023 Urology Office/Clinic Note Chief Complaint 7 month HPI Staff 67 year old male here for 7 month follow up Previous DX: high grade PIN, Elevated PSA S/P TRUS/BX 07/23/22, Ed *tadalafil 20mg PRN* Previous PSA 6.1 with 11% done 05/27/22 Pt. did not get PSA done. Dysuria:no Incomplete bladder emptying: no Hematuria:no Frequency:no Urgency:no Nocturia:1x Stream:good stream Post void dripping:no Wearing pads/ Depends:no Urge incontinence:no Stress incontinence:no Incontinence without Sensory Awareness:no Abdominal pain:no Flank pain:no History of Present Illness Tests reviewed: reviewed UA I have reviewed the previous health record information and history for this patient from Dr. Garcia. I have reviewed and verified the staff HPI to be accurate for this encounter. There have been no associated fever, chills, flank pain, or blood in the urine. Denies any urinary infections since last encounter. Review of Systems PHQ Score Initial Depression Screen Score: 0 ROS - Provider Constitutional: denies weight loss, denies hot flashes. Eyes: denies eye problems. Gastrointestinal: denies nausea, denies vomiting. Cardiovascular: denies chest pain or angina. Integumentary: no dryness Musculoskeletal: denies musculoskeletal symptoms. ENMT: denies otolaryngeal symptoms. Respiratory: no shortness of breath. Heme/Lymph: denies easy bleeding tendency, denies easy bruising tendency. Psychiatric: no confusion, no anxiety. Genitourinary: denies dysuria, denies hematuria, denies discharge, denies urinary frequency, denies urinary hesitancy, denies nocturia, denies incontinence, denies genital sores, denies decreased libido, and denies erectile dysfunction. Physical Exam Vitals & Measurements HR: 58(Peripheral) RR: 16 BP: 144/92 HT: 71 in HT: 181 cm WT: 87.7 kg WT: 192.94 lb BMI: 26.77 General Appearance: alert, no distress, well nourished, well developed male. Genitourinary: normal scrotum, normal testes, normal urethra, normal epididymis, normal vas deferens/spermatic cord. Flank Pain: none. Bladder: nonpalpable. Assessment/Plan 1. 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 2. Elevated PSA (R97.20: Elevated prostate specific antigen [PSA]) BONNIE done 07/01/22 - 1 cm firm nodule found on the left base. S/p TRUS/bx done 07/23/22. Path report negative for prostate cancer PSA 05/27/22 - 6.1 & 11.0% UA today is negative. IPSS 4, QoL 1 Pt denies any family history of prostate cancer. -Pt to get PSA F&T today. Will call pt with results. Follow up 6 months with PSA F&T or sooner if needed. Pt understands and agrees with plan. 3. Erectile dysfunction (N52.9: Male erectile dysfunction, unspecified) Tadalafil 20mg PRN therapy. This patient had a biopsy 6 months ago or so there is 1 area of PIN I am tracking his PSA did get it today so I am sending him over directly to get his free and total. I told him I call the results if they are abnormal otherwise 6 months we will repeat the PSA free and total. Patient has no complaints thanks Follow-up With When Contact Information SHAMIR LIAO, Pawel Lu, URL In [address] [place] [phone] Additional Instructions: PSA F&T Patient Education Prostate Cancer Screening IDianna, personally scribed for Dr. Garcia on 03/03/2023 12:33:32. Documentation recorded by the scribeDianna, accurately reflects the services(s) I performed and decisions made by me. Authenticated by Dr. Garcia on 03/03/2023 12:36:4712:33:32. Problem List/Past Medical History Ongoing Atopic dermatitis BMI 26.0-26.9,adult BPH without urinary obstruction Diabetes mellitus screening Elevated prostate specific antigen (PSA) Elevated PSA Encounter for lipid screening for cardiovascular disease Erectile dysfunction Overweight PIN (prostatic intraepithelial neoplasia) Prostate cancer screening Seborrheic keratosis Historical No qualifying data Procedure/Surgical History Transrectal biopsy of prostate using ultrasound (US) guidance (07/23/2022), Colonoscopy (01/25/2021), None. Medications Cialis 20 mg Tab, 20 mg= 1 tab(s), Oral, Daily, PRN, 1 refills Cipro 500 mg Tab, 500 mg= 1 tab(s), Oral, BID, Not taking triamcinolone topical 0.5% cream, 1 steve, Topical, BID, 1 refills Allergies No Known Allergies No Known Medication Allergies Social History Employment/School Retired, 12/24/2020 Home/Environment Lives with Spouse., 12/24/2020 Tobacco Never (less than 100 in lifetime) Tobacco Use:. Never Smokeless Tobacco Use:., 08/12/2022 Family History Acute myocardial infarction: Father. Heart disease: Father. Ovarian cancer: Mother. Immunizations Vaccine Date Status Comments SARSCoV2 mRNA(jlyhpgcoq-oltg-kcdruo) vac 12/27/2021 Recorded SARS-CoV-2 (COVID-19) mRNA BNT-162b2 vax 06/22/2021 Recorde (more content not included)... Normal [facility] Comment on above: Result Comment: Elec tronically Signed By: Pawel GARCIA MD\.br\Date and Time Signed: 03/03/23 12:36 EDT\.br\Electronically Co-Signed By: Dianna Regalado\.br\Date and Time Co-Signed: 03/03/23 12:33 EDT [facility] Repairon 12-23-2022 Chriss Porter MD 12/23/2022 4:19 PM [facility] Date/Time: 12/23/2022 4:14 PM Performed by: Chriss Porter MD Authorized by: Chriss Porter MD Consent: Consent obtained: Verbal Consent given by: Patient Risks, benefits, and alternatives were discussed: yes Risks discussed: Infection and retained foreign body [place] protocol: Procedure explained and questions answered to patient or proxy's satisfaction: yes Imaging studies available: no Patient identity confirmed: Verbally with patient Anesthesia: Anesthesia method: Local infiltration Local anesthetic: Lidocaine 1% w/o epi Laceration details: Location: Hand Hand location: L wrist Length (cm): 3 Depth (mm): 0.5 Pre-procedure details: Preparation: Patient was prepped and draped in usual sterile fashion Exploration: Limited defect created (wound extended): no Contaminated: no Treatment: Area cleansed with: Soap and water Amount of cleaning: Extensive Irrigation method: Pressure wash Visualized foreign bodies/material removed: no Debridement: None Undermining: None Skin repair: Repair method: Sutures Suture size: 5-0 Suture material: Prolene Approximation: Approximation: Close Repair type: Repair type: Simple Post-procedure details: Dressing: Bulky dressing [facility] Work Phone: [facility] Work Phone: CHEMISTRYOrdered By: SYSTEM SYSTEM on 05-27-2022 Cholesterol [Mass/Vol] 240 mg/dL High 120 - 200 mg/ dL [facility] Cholesterol in HDL [Mass/Vol] 37 mg/dL Invalid Interpretation Code [facility] Cholesterol in LDL [Mass/Vol] 191 mg/dL High <=129mg/dL [facility] Cholesterol in VLDL [Mass/Vol] 15 mg/dL Normal 7 - 40 mg/dL [facility] Free PSA [Mass/Vol] 0.6 ng/mL Invalid Inte rpretation Code [facility] Free PSA/Total PSA [Mass fraction] 11.0 % Low >=25.0% [facility] Glucose post fast [Mass/Vol] 97 mg/dL Normal 55 - 99 mg/dL [facility] Prostate specific Ag [Mass/Vol] 6.5 ng/mL High 0.1 - 3.5 ng/mL [facility] Prostate specific Ag [Mass/Vol] 6.1 ng/mL High 0.1 - 3.5 ng/mL [facility] Triglyceride [Mass/Vol] 74 mg/dL Normal <=149mg/dL [facility] Vital Signs Date Time Vital Sign Value Performing Clinician Faustino potts 09-07-2023 14:19-0500 Blood Pressure Location Sonal Ocampo [facility] 09-07-2023 14:19-0500 Diastolic blood pressure 75 mm[Hg] Sonal Ocampo [facility] 09-07-2023 14:19-0500 Heart rate 79 /min Sonal Ocampo [facility] 09-07-2023 14:19-0500 Respiratory rate 16 /min Sonal Lue [facility] 09-07-2023 14:19-0500 Systolic blood pressure 130 mm[Hg] Sonal Lue [facility] 08-10-2023 16:18-0500 Blood Pressure Location Sonal Lue [facility] 08-10-2023 16:18-0500 Diastolic blood pressure 81 mm[Hg] Sonal Lue [facility] 08-10-2023 16:18-0500 Heart rate 64 /min Sonal Lue [facility] 08-10-2023 16:18-0500 Systolic blood pressure 139 mm[Hg] Sonal Lue [facility] 06-01-2023 14:26-0400 Diastolic blood pressure 79 mm[Hg] Sonal Lue [facility] 06-01-2023 14:26-0400 Heart rate 76 /min Sonal Lue [facility] 06-01-2023 14:26-0400 Systolic blood pressure 135 mm[Hg] Sonal Lue [facility] 12-23-2022 15:51-0400 Body height 182.9 cm Chriss Porter MD Work Phone: [facility] 12-23-2022 15:51-0400 Body mass index (BMI) [Ratio] 26.45 kg/m2 Chriss Porter MD Work Phone: [facility] 12-23-2022 15:51-0400 Body temperature 98.01 [degF] Chriss Porter MD Work Phone: [facility] 12-23-2022 15:51-0400 Body weight 88.45 kg Chriss Porter MD Work Phone: [facility] 12-23-2022 15:51-0400 Diastolic blood pressure 83 mm[Hg] Chriss Porter MD Work Phone: [facility] 12-23-2022 15:51-0400 Heart rate 75 /min Chriss Porter MD Work Phone: [facility] 12-23-2022 15:51-0400 Respiratory rate 16 /min Chriss Porter MD Work Phone: [facility] 12-23-2022 15:51-0400 SaO2% (BldA) [Mass fraction] 96 % Chriss Porter MD Work Phone: [facility] 12-23-2022 15:51-0400 Systolic blood pressure 150 mm[Hg] Chriss Porter MD Work Phone: [facility] 08-12-2022 11:11-0500 Blood Pressure Location Inform Direct [facility] 08-12-2022 11:11-0500 Diastolic blood pressure 83 mm[Hg] Pawel Vanu Coverage [facility] 08-12-2022 11:11-0500 Heart rate 65 /min Pawel Vanu Coverage [facility] 08-12-2022 11:11-0500 Systolic blood pressure 151 mm[Hg] Pawel Vanu Coverage [facility] 07-01-2022 10:26-0400 Blood Pressure Location Pawel RICE [facility] 07-01-2022 10:26-0400 Diastolic blood pressure 71 mm[Hg] Pawel RICE [facility] 07-01-2022 10:26-0400 Heart rate 63 /min Pawel RICE [facility] 07-01-2022 10:26-0400 Respiratory rate 16 /min Pawel RICE [facility] 07-01-2022 10:26-0400 Systolic blood pressure 131 mm[Hg] Pawel RICE [facility] 05-20-2022 15:07-0400 Diastolic blood pressure 78 mm[Hg] Christopher BROWN [facility] 05-20-2022 15:07-0400 Mean blood pressure 98 mm[Hg] Christopher BROWN [facility] 05-20-2022 15:07-0400 Systolic blood pressure 138 mm[Hg] Christopher BROWN [facility] 05-20-2022 14:48-0400 Blood Pressure Location Christopher BROWN [facility] 05-20-2022 14:48-0400 Body temperature 97.7 [degF] Christopher BROWN [facility] 05-20-2022 14:48-0400 Diastolic blood pressure 84 mm[Hg] Christopher BROWN [facility] 05-20-2022 14:48-0400 Heart rate 82 /min Christopher BROWN [facility] 05-20-2022 14:48-0400 Respiratory rate 16 /min Hank DUDLEY [facility] 05-20-2022 14:48-0400 SaO2% (BldA) [Mass fraction] 94 % Hank MARTINEZ [facility] 05-20-2022 14:48-0400 Systolic blood pressure 142 mm[Hg] Hank MARTINEZ [facility] Encounters Encounter Date Encounter Type Care Provider Facility Start: 09-07-2023 ambulatory Sonal M. Lue Facility:[facility] [place] Start: 09-07-2023 End: 09-07-2023 Patient encounter procedure Sonal M. Lue [facility] Start: 08-27-2023 ambulatory Chun Galvani lity:[facility] Start: 08-10-2023 End: 08-11-2023 ambulatory Sonal M. Lue Facility:[facility] [place] Start: 08-10-2023 End: 08-10-2023 Patient encounter procedure Sonal M. Lue [facility] Start: 07-29-2023 End: 07-30-2023 ambulatory Sonal M. Lue Facility:CD:[id number] Start: 06-29-2023 End: 06-29-2023 ambulatory Sonal M Lue Facility:[facility] Start: 06-29-2023 End: 06-29-2023 ambulatory MD Aston Martinez Work Phone: [facility] Work Phone: Start: 06-29-2023 End: 06-29-2023 Patient encounter procedure MD Aston Martinez Work Phone: [facility] [place] Work Phone: Start: 06-01-2023 End: 06-02-2023 ambulatory Sonal Ocampo Facility:[facility] Start: 06-01-2023 End: 06-01-2023 Patient encounter procedure Sonal Ocampo [facility] Start: 05-26-2023 End: 05-27-2023 ambulatory Sonal Ocampo Facility:[facility] Start: 03-03-2023 End: 03-04-2023 ambulatory Pawel GARCIA Facility:[facility] Start: 03-03-2023 End: 03-04-2023 ambulatory Pawel Lu SHAMIR Facility:[facility] Start: 12-23-2022 End: 12-23-2022 [facility] Start: 12-23-2022 End: 12-23-2022 Emergency department patient visit Chriss Porter MD Work Phone: [facility] ED Comment on above: Laceration of left w rist, initial encounter (Primary Dx) Start: 08-12-2022 End: 08-12-2022 Patient encounter procedure Pawel GARCIA [facility] Start: 07-01-2022 End: 07-01-2022 Patient encounter procedure Pawel GARCIA [facility] Start: 05-27-2022 End: 05-27-2022 Lab Drop off Hank MARTINEZ [facility] Start: 05-27-2022 End: 05-27-2022 Patient encounter procedure Hank MARTINEZ [facility] Start: 05-20-2022 End: 05-20-2022 Patient encounter procedure Hank MARTINEZ [facility] Procedures Date Procedure Procedure Detail Performing Clinician Start: 06-29-2023 MR prostate wo/w con MD Sonal Ocampo Work Phone: Start: 12-23-2022 LACERATION REPAIR Chriss Porter MD Work Phone: Start: 07-23-2022 Transrectal biopsy o f prostate using ultrasound guidance Pawel GARCIA Start: 01-25-2021 Colonoscopy Wilbert MARTINEZ Comment on above: polyps x2 None (qualifier value) Aston MARTINEZ Plan of Treatment Date Care Activity Detail Author Start: 12-23-2032 DTaP/Tdap/Td vaccine (2 - Td or Tdap) DTaP/Tdap/Td vaccine (2 - Td or Tdap) [facility] Start: 06-29-2023 MR Prostate WO and W contrast IV [facility] Start: 06-29-2023 MR prostate wo/w con MR prostate wo/ w con [facility] Start: 04-21-2023 Influenza vaccination Flu vacc ine (Season Ended) [facility] Start: 08-17-2021 COVID-19 Vaccine (4 - Booster for Pfizer series) COVID-19 Vaccine (4 - Booster for Pfizer series) [facility] Immunizations Immunization Date Immunization Notes Care Provider Fa cility 12-23-2022 tetanus toxoid, reduced diphtheria toxoid, and acellular pertussis vaccine, adsorbed Chriss Porter MD Work Phone: [facility] Work Phone: 12-27-2021 SARS-CoV-2 mRNA (iipxnywolxo-ssel-ixpx ose) vaccine Hank MARTINEZ [facility] 06-22-2021 SARS-CoV-2 (COVID-19 ) mRNA BNT-162b2 vax Hank MARTINEZ [facility] 12-17-2020 SARS-CoV-2 (COVID-19 ) mRNA BNT-162b2 vax Hank eelusion [facility] Comment on above: Result Comment: molly @ dm/w 11-26-2020 SARS-CoV-2 (COVID-19 ) mRNA BNT-162b2 vax Hank eelusion [facility] Comment on above: Result Comment: donnan @ dm/w NEGATED: Highlighted row has not occurred!12-24-2020 influenza virus vaccine, unspecified formulation Hank MARTINEZ [facility] [place] [place] Payers Date Payer Category Payer Self-pay 2019 Medicare [id number] 2019 Unknown [id number]. [id number] 1954 Unknown [id number] 2.16.8 [id number] 1954 Unknown [id number] 2.16.8 [id number] 1954 Unknown [id number] 2.16.8 [id number] 1954 Unknown [id number] 2.16.8 [id number] 1954 Unknown [id number] 2.16.8 [id number] 1954 Unknown [id number] 2.16.8 [id number] 1954 Unknown [id number] 2.16.8 [id number] 1954 Unknown [id number] 2.16.8 [id number] Unknown [id number] 2.16.8 [id number] Unknown [id number] 2.16.8 [id number] Social History Date Type Detail Facility Start: 05-20-2022 End: 08-10-2023 Tobacco smoking status Never smoked tobacco (finding) [facility] Tobacco smoking status Never [facility] Sex Assigned At Male [facility] Start: 12-23-2022 Tobacco use and exposure Smokeless tobacco non-user [facility] Phone: Start: 12-23-2022 Alcohol intake Lifetime non-d adan (finding) [facility] Phone: Start: 12-23-2022 History SDOH Alcohol Frequency 1 [employer] Phone: Start: 1955 Sex Assigned At Not on file B [facility] [employer] Phone: Start: 12-13-2022 End: 12-23-2022 Exposure to SARS-CoV-2 (event) Not sure [facility] [employer] Phone: Start: 1955 Sex Assigned At Male [facility] Functional Status Date Assessment Result Facility 09-07-2023 Functional Status N/A [facility] 08-10-2023 Functional Status N/A [facility] 06-01-2023 Functional Status N/A [facility] 08-12-2022 Functional Status N/A [facility] 07-01-2022 Functional Status N/A [facility] 05-20-2022 Functional Status N/A [facility] [place] Clinical Notes 05-20-2022 to 09-07-2023 Note Date & Type Note Facility 09-07-2023 Hospital Discharg e instructions Patient Education 09/07/2023 15:23:55 Prostate Cancer Prostate Cancer The prostate is a small gland that produces fluid that makes up semen (seminal fluid). It is located below the bladder in men, in front of the rectum. Prostate cancer is the abnormal growth of cells in the prostate gland. What are the causes? The exact cause of this condition is not known. What increases the risk? You are more likely to develop this condition if: You are 65 years of age or older. You have a family history of prostate cancer. You have a family history of breast and ovarian cancer. You have genes that are passed from parent to child (inherited), such as BRCA1 and BRCA2. You have Daniels syndrome. men and men of descent are diagnosed with prostate cancer at higher rates than other men. The reasons for this are not well understood and are likely due to a combination of genetic and environmental factors. What are the signs or symptoms? Symptoms of this condition include: Problems with urination. This may include: ?A weak or interrupted flow of urine. ?Trouble starting or stopping urination. ?Trouble emptying the bladder all the way. ?The need to urinate more often, especially at night. Blood in urine or semen. Persistent pain or discomfort in the lower back, lower abdomen, or hips. Trouble getting an erection. Weakness or numbness in the legs or feet. How is this diagnosed? This condition can be diagnosed with: A digital rectal exam. For this exam, a health care provider inserts a gloved finger into the rectum to feel the prostate gland. A blood test called a prostate-specific antigen (PSA) test. A procedure in which a sample of tissue is taken from the prostate and checked under a microscope (prostate biopsy). An imaging test called transrectal ultrasonography. Once the condition is diagnosed, tests will be done to determine how far the cancer has spread. This is called staging the cancer. Staging may involve imaging tests, such as a bone scan, CT scan, PET scan, or MRI. Stages of prostate cancer The stages of prostate cancer are as follows: Stage 1 (I). At this stage, the cancer is found in the prostate only. The cancer is not visible on imaging tests, and it is usually found by accident, such as during prostate surgery. Stage 2 (II). At this stage, the cancer is more advanced than it is in stage 1, but the cancer has not spread outside the prostate. Stage 3 (III). At this stage, the cancer has spread beyond the outer layer of the prostate to nearby tissues. The cancer may be found in the seminal vesicles, which are near the bladder and the prostate. Stage 4 (IV). At this stage, the cancer has spread to other parts of the body, such as the lymph nodes, bones, bladder, rectum, liver, or lungs. Prostate cancer grading Prostate cancer is also graded according to how the cancer cells look under a microscope. This is called the [place] score and the total score can range from 6 10, indicating how likely it is that the cancer will spread (metastasize) to other parts of the body. The higher the score, the greater the likelihood that the cancer will spread. Rocio 6 or lower: This indicates that the cancer cells look similar to normal prostate cells (well differentiated). Ocala 7: This indicates that the cancer cells look somewhat similar to normal prostate cells (moderately differentiated). Ocala 8, 9, or 10: This indicates that the cancer cells look very different than normal prostate cells (poorly differentiated). How is this treated? Treatment for this condition depends on several factors, including the stage of the cancer, your age, personal preferences, and your overall health. Talk with your health care provider about treatment options that are recommended for you. Common treatments include: Observation for early stage prostate cancer (active surveillance). This involves having exams, blood tests, and in some cases, more biopsies. For some men, this is the only treatment needed. Surgery. Types of surgeries include: ?Open surgery (radical prostatectomy). In this surgery, a larger incision is made to remove the prostate. ?A laparoscopic radical prostatectomy. This is a surgery to remove the prostate and lymph nodes through several small incisions. It is often referred to as a minimally invasive surgery. ?A robotic radical prostatectomy. This is laparoscopic surgery to remove the prostate and lymph nodes with the help of robotic arms that are controlled by the surgeon. ?Cryoablation. This is surgery to freeze and destroy cancer cells. Radiation treatment. Types of radiation treatment include: ?External beam radiation. This type aims beams of radiation from outside the body at the prostate to destroy cancerous cells. ?Brachytherapy. This type uses radioactive needles, seeds, wires, or tubes that are implanted into the prostate gland. Like external beam radiation, brachytherapy destroys cancerous cells. An advantage is that this type of radiation limits the damage to surrounding tissue and has fewer side effects. Chemotherapy. This treatment kills cancer cells or stops them from multiplying. It kills both cancer cells and normal cells. Targeted therapy. This treatment uses medicines to kill cancer cells without damaging normal cells. Hormone treatment. This treatment involves taking medicines that act on testosterone, one of the male hormones, by: ?Stopping your body from producing testosterone. ?Blocking testosterone from reaching cancer cells. Follow these instructions at home: Lifestyle Do not use any products that contain nicotine or tobacco. These products include cigarettes, chewing tobacco, and vaping devices, such as e-cigarettes. If you need help quitting, ask your health care provider. Eat a healthy diet. To do this: ?Eat foods that are high in fiber. These include beans, whole grains, and fresh fruits and vegetables. ?Limit foods that are high in fat and sugar. These include fried or sweet foods. Treatment for prostate cancer may affect sexual function. If you have a partner, continue to have intimate moments. This may include touching, holding, hugging, and caressing your partner. Get plenty of sleep. Consider joining a support group for men who have prostate cancer. Meeting with a support group may help you learn to manage the stress of having cancer. General instructions Take mckw-alo-bhqvnge and prescription medicines only as told by your health care provider. If you have to go to the hospital, notify your cancer specialist (oncologist). Keep all follow-up visits. This is important. Where to find more information [place] [employer]: www.cancer.org [place] [employer]: www.cancer.net National Cancer [place]: www.cancer.gov Contact a health care provider if: You have new or increasing trouble urinating. You have new or increasing blood in your urine. You have new or increasing pain in your hips, back, or chest. Get help right away if: You have weakness or numbness in your legs. You cannot control urination or your bowel movements (incontinence). You have chills or a fever. Summary The prostate is a small gland that is involved in the production of semen. It is located below a man's bladder, in front of the rectum. Prostate cancer is the abnormal growth of cells in the prostate gland. Treatment for this condition depends on the stage of the cancer, your age, personal preferences, and your overall health. Talk with your health care provider about treatment options that are recommended for you. Consider joining a support group for men who have prostate cancer. Meeting with a support group may help you learn to manage the stress of having cancer. This information is not intended to replace advice given to you by your health care provider. Make sure you discuss any questions you have with your health care provider. Document Revised: 12/04/2021 Document Reviewed: 12/04/2021 [employer] Patient Education 2022 [facility]. Follow Up Care 08/10/2023 17:01:02 With:Terrence LIAO, Sonal Stanford, URL, URO Address: When: Unknown [facility] 08-27-2023 Consult note Note Date/Time August 27, 2023 9:46am [facility] [place] [address] Rad Onc Consult Note - OP Signed Patient: Gabriel Rivera MR#: [id number] : 1955 Acct:[id number] Age/Sex: 68 / M Type: REG RCR Copies to: Aston Ocampo MD~ Assessment & Plan (1) Prostate cancer Plan: Patient has our contact information if he would like to proceed with SBRT. Assessment: 68-year-old male with newly diagnosed cT1cN0 adenocarcinoma the prostate, Rocio 3+4 = 7 grade group 2 disease in 1 of 21 cores. There is 30% core involvement 10% pattern 4. iPSA 9.4 Per the notes patient has met with urology and discussed the option of surgical resection as well as active surveillance. Decipher returned 0.72 consistent with high risk disease. Patient is urinating well and we discussed options for treatment. Based on the Decipher I would recommend surgery or radiation as he would be expected to progress on active surveillance. Should he be interested in noninvasive management we discussed the option of SBRT 37.5 Priest in 5 fractions delivered every other day. I would also recommend 6 months of short-term ADT. I provided a general overview of radiation treatment planning and delivery. We discussed the need for fiducial and hydrogel placement in the OR. We also reviewed immobilization and CT simulation. Short and long-term side effects were reviewed in detail and his questions were answered I met with patient and his for over an hour and answered their questions tothe best of my ability. We reviewed his decipher score and discussed the implications of high risk. I also offered referral for brachytherapy or other opinion should the patient desire. He continues to obtain opinions on treatment and we are happy to participate in his care. He has our contact information if he would like to proceed with SBRT. HPI Date of Service: 08/27/23 HPI: 68-year-old male followed by urology due to an elevated PSA. . Also has erectile dysfunction for which she is on Cialis 20 mg as needed. 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 There was a concerning lesion involving the transitional zone at the level of the apex measuring 9.9 mm PI-RADS 4. There is note that the [facility] MRI volume was incorrect prostate volume 20 to 30 cc. July 29, 2023 MR fusion biopsy confirming grade group 2 disease in the regionof interest at the midline apex transitional zone. There is 30% core pylextlwjor63% pattern 4 Decipher returned 0.72 consistent with high risk disease. Family history negative for prostate cancer. Mother with ovarian cancer Today IP SS in 6 with nocturia 1 time per night. Quality of life is pleased. KWAME is 16. He has no other pelvic complaints he is up-to-date on colonoscopies. Home Medications & Allergies Allergies No Known Allergies Allergy (Verified 08/27/23 13:04) Subjective ROS: I reviewed the 12-point Review of Systems with the patient as per our standard questionnaire. Objective Pain: 0/10 Karnofsky Performance Scale: 90%: Can perform normal activity, minor signs of disease Physical Exam: Physical Exam KPS 90 General: alert and oriented male in no acute distress HEENT: normocephalic, extra ocular movements intact Lungs: normal work of breathing on room air Abdomen: non acute MSK: extremities within normal limits Neuro: grossly intact Dictated By: Chun Sal MD DD/ 0945 Signed By: <Electronically signed by Chun Sal MD> 08/27/23 1404 [facility] Work Phone: 1(112) 914-362311-20-2023 Hospital Discharge instructions Patient Education 08/10/2023 16:37:38 Prostate Cancer Prostate Cancer The prostate is a small gland that produces fluid that makes up semen (seminal fluid). It is located below the bladder in men, in front of the rectum. Prostate cancer is the abnormal growth of cells in the prostate gland. What are the causes? The exact cause of this condition is not known. What increases the risk? You are more likely to develop this condition if: You are 65 years of age or older. You have a family history of prostate cancer. You have a family history of breast and ovarian cancer. You have genes that are passed from parent to child (inherited), such as BRCA1 and BRCA2. You have Daniels syndrome. men and men of descent are diagnosed with prostate cancer at higher rates than other men. The reasons for this are not well understood and are likely due to a combination of genetic and environmental factors. What are the signs or symptoms? Symptoms of this condition include: Problems with urination. This may include: ?A weak or interrupted flow of urine. ?Trouble starting or stopping urination. ?Trouble emptying the bladder all the way. ?The need to urinate more often, especially at night. Blood in urine or semen. Persistent pain or discomfort in the lower back, lower abdomen, or hips. Trouble getting an erection. Weakness or numbness in the legs or feet. How is this diagnosed? This condition can be diagnosed with: A digital rectal exam. For this exam, a health care provider inserts a gloved finger into the rectum to feel the prostate gland. A blood test called a prostate-specific antigen (PSA) test. A procedure in which a sample of tissue is taken from the prostate and checked under a microscope (prostate biopsy). An imaging test called transrectal ultrasonography. Once the condition is diagnosed, tests will be done to determine how far the cancer has spread. This is called staging the cancer. Staging may involve imaging tests, such as a bone scan, CT scan, PETscan, or MRI. Stages of prostate cancer The stages of prostate cancer are as follows: Stage 1 (I). At this stage, the cancer is found in the prostate only. The cancer is not visible on imaging tests, and it is usually found by accident, such as during prostate surgery. Stage 2 (II). At this stage, the cancer is more advanced than it is in stage 1, but the cancer has not spread outside the prostate. Stage 3 (III). At this stage, the cancer has spread beyond the outer layer of the prostate to nearby tissues. The cancer may be found in the seminal vesicles, which are near the bladder and the prostate. Stage 4 (IV). At this stage, the cancer has spread to other parts of the body, such as the lymph nodes, bones, bladder, rectum, liver, or lungs. Prostate cancer grading Prostate cancer is also graded according to how the cancer cells look under a microscope. This is called the [place] score and the total score can range from 6 10, indicating how likely it is that the cancer will spread (metastasize) to other parts of the body. The higher the score, the greater thelikelihood that the cancer will spread. Rocio 6 or lower: This indicates that the cancer cells look similar to normal prostate cells (well differentiated). Ocala 7: This indicates that the cancer cells look somewhat similar to normal prostate cells (moderately differentiated). [place] 8, 9, or 10: This indicates that the cancer cells look very different than normal prostate cells (poorly differentiated). How is this treated? Treatment for this condition depends on several factors, including the stage of the cancer, your age, personal preferences, and your overall health. Talk with your health care provider about treatment options that are recommended for you. Common treatments include: Observation for early stage prostate cancer (active surveillance). This involves having exams, blood tests, and in some cases, more biopsies. For some men, this is the only treatment needed. Surgery. Types of surgeries include: ?Open surgery (radical prostatectomy). In this surgery, a larger incision is made to remove the prostate. ?A laparoscopic radical prostatectomy. This is a surgery to remove the prostate and lymph nodes through several small incisions. It is often referred to as a minimally invasive surgery. ?A robotic radical prostatectomy. This is laparoscopic surgery to remove the prostate and lymph nodes with the help of robotic arms that are controlled by the surgeon. ?Cryoablation. This is surgery to freeze and destroy cancer cells. Radiation treatment. Types of radiation treatment include: ?External beam radiation. This type aims beams of radiation from outside the body at the prostate to destroy cancerous cells. ?Brachytherapy. This type uses radioactive needles, seeds, wires, or tubes that are implanted into the prostate gland. Like external beam radiation, brachytherapy destroys cancerous cells. An advantage is that this type of radiation limits the damage to surrounding tissue and has fewer side effects. Chemotherapy. This treatment kills cancer cells or stops them from multiplying. It kills both cancer cells and normal cells. Targeted therapy. This treatment uses medicines to kill cancer cells without damaging normal cells. Hormone treatment. This treatment involves taking medicines that act on testosterone, one of the male hormones, by: ?Stopping your body from producing testosterone. ?Blocking testosterone from reaching cancer cells. Follow these instructions at home: Lifestyle Do not use any products that contain nicotine or tobacco. These products include cigarettes, chewing tobacco, and vaping devices, such as e-cigarettes. If you need help quitting, ask your health careprovider. Eat a healthy diet. To do this: ?Eat foods that are high in fiber. These include beans, whole grains, and fresh fruits and vegetables. ?Limit foods that are high in fat and sugar. These include fried or sweet foods. Treatment for prostate cancer may affect sexual function. If you have a partner, continue to have intimate moments. This may include touching, holding, hugging, and caressing your partner. Get plenty of sleep. Consider joining a support group for men who have prostate cancer. Meeting with a support group mayhelp you learn to manage the stress of having cancer. General instructions Take xfbi-hbh-bgxzwjp and prescription medicines only as told by your health care provider. If you have to go to the hospital, notify your cancer specialist (oncologist). Keep all follow-up visits. This is important. Where to find more information [place] [employer]: www.cancer.org [place] [employer] On[employer]: www.cancer.net National Cancer [place]: www.cancer.gov Contact a health care provider if: You have new or increasing trouble urinating. You have new or increasing blood in your urine. You have new or increasing pain in your hips, back, or chest. Get help right away if: You have weakness or numbness in your legs. You cannot control urination or your bowel movements (incontinence). You have chills or a fever. Summary The prostate is a small gland that is involved in the production of semen. It is located below a man's bladder, in front of the rectum. Prostate cancer is the abnormal growth of cells in the prostate gland. Treatment for this condition depends on the stage of the cancer, your age, personal preferences, and your overall health. Talk with your health care provider about treatment options that are recommended for you. Consider joining a support group for men who have prostate cancer. Meeting with a support group mayhelp you learn to manage the stress of having cancer. This information is not intended to replace advice given to you by your health care provider. Make sure you discuss any questions you have with your health care provider. Document Revised: 12/04/2021 Document Reviewed: 12/04/2021 [employer] Patient Education 2022 [facility]. Follow Up Care 07/30/2023 08:07:10 With:Terrence LIAO, LOGAN Vargas, URO Address: When: Unknown [facility] 09-11-2023 Hospital Discharge instructions Patient Education 06/01/2023 14:45:27 Prostate Cancer Screening Prostate Cancer Screening Prostate cancer screening is testing that is done to check for the presence of prostate cancer in men. The prostate gland is a walnut-sized gland that is located below the bladder and in front of therectum in males. The function of the prostate is to add fluid to semen during ejaculation. Prostatecancer is one of the most common types of cancer in men. Who should have prostate cancer screening? Screening recommendations vary based on age and other risk factors, as well as between the professional organizations who make the recommendations. In general, screening is recommended if: You are age 50 to 70 and have an average risk for prostate cancer. You should talk with your healthcare provider about your need for screening and how often screening should be done. Because most prostate cancers are slow growing and will not cause , screening in this age group is generally reserved for men who have a 10- to 15-year life expectancy. You are younger than age 50, and you have these risk factors: ?Having a father, brother, or uncle who has been diagnosed with prostate cancer. The risk is higherif your family member's cancer occurred at an early age or if you have multiple family members withprostate cancer at an early age. ?Being a male who is Black or is of [place] or sub-Saharan descent. In general, screening is not recommended if: You are younger than age 40. You are between the ages of 40 and 49 and you have no risk factors. You are 70 years of age or older. At this age, the risks that screening can cause are greater than the benefits that it may provide. If you are at high risk for prostate cancer, your health care provider may recommend that you have screenings more often or that you start screening at a younger age. How is screening for prostate cancer done? The recommended prostate cancer screening test is a blood test called the prostate-specific antigen(PSA) test. PSA is a protein that is made in the prostate. As you age, your prostate naturally produces more PSA. Abnormally high PSA levels may be caused by: Prostate cancer. An enlarged prostate that is not caused by cancer (benign prostatic hyperplasia, or BPH). This condition is very common in older men. A prostate gland infection (prostatitis) or urinary tract infection. Certain medicines such as male hormones (like testosterone) or other medicines that raise testosterone levels. A rectal exam may be done as part of prostate cancer screening to help provide information about the size of your prostate gland. When a rectal exam is performed, it should be done after the PSA level is drawn to avoid any effect on the results. Depending on the PSA results, you may need more tests, such as: A physical exam to check the size of your prostate gland, if not done as part of screening. Blood and imaging tests. A procedure to remove tissue samples from your prostate gland for testing (biopsy). This is the only way to know for certain if you have prostate cancer. What are the benefits of prostate cancer screening? Screening can help to identify cancer at an early stage, before symptoms start and when the cancer can be treated more easily. There is a small chance that screening may lower your risk of dying from prostate cancer. The chance is small because prostate cancer is a slow-growing cancer, and most men with prostate cancer from a different cause. What are the risks of prostate cancer screening? The main risk of prostate cancer screening is diagnosing and treating prostate cancer that would never have caused any symptoms or problems. This is called overdiagnosisand overtreatment. PSA screening cannot tell you if your PSA is high due to cancer or a different cause. A prostate biopsy is the only procedure to diagnose prostate cancer. Even the results of a biopsy may not tell you if your cancer needs to be treated. Slow-growing prostate cancer may not need any treatment other than monitoring, so diagnosing and treating it may cause unnecessary stress or other side effects. Questions to ask your health care provider When should I start prostate cancer screening? What is my risk for prostate cancer? How often do I need screening? What type of screening tests do I need? How do I get my test results? What do my results mean? Do I need treatment? Where to find more information [employer] [place] [employer]: www.cancer.org [place] [employer]: www.auanet.org Contact a health care provider if: You have difficulty urinating. You have pain when you urinate or ejaculate. You have blood in your urine or semen. You have pain in your back or in the area of your prostate. Summary Prostate cancer is a common type of cancer in men. The prostate gland is located below the bladder and in front of the rectum. This gland adds fluid to semen during ejaculation. Prostate cancer screening may identify cancer at an early stage, when the cancer can be treated more easily and is less likely to have spread to other areas of the body. The prostate-specific antigen (PSA) test is the recommended screening test for prostate cancer, butit has associated risks. Discuss the risks and benefits of prostate cancer screening with your health care provider. If you are age 70 or older, the risks that screening can cause are greater than the benefits that it may provide. This information is not intended to replace advice given to you by your health care provider. Make sure you discuss any questions you have with your health care provider. Document Revised: 03/03/2022 Document Reviewed: 03/03/2022 [employer] Patient Education 2022 [employer] Follow Up Care 03/04/2023 08:53:08 With:Terrence LIAO, LOGAN Vargas, URO Address: When: Unknown [facility] 06-14-2023 Note From: Dania Zacarias To: EU - Administrative; Sent: 03/03/2023 12:34:31 EDT Show up: 08/03/2023 12:34:00 EST Subject: Ambulatory Reminder Due Date/Time: 10/03/2023 12:34:00 EST Reminder/Recall PT needs 6 month F/U w/ PSA done at [facility], [facility] Comment: PT TO BE SEEN IN 3 MONTHS TO REVIEW PSA [id number] Evaluation + Plan note Future Scheduled Tests Laboratory* PSA Free & Total 01/19/23 [facility] 11-22-2022 Hospital Discharge instructions Patient Education 08/12/2022 11:35:30 Prostate Cancer Screening Prostate Cancer Screening The prostate is a walnut-sized gland that is located below the bladder and in front of the rectum in males. The function of the prostate (prostate gland) is to add fluid to semen during ejaculation. Prostate cancer is the second most common type of cancer in men. A screening test for cancer is a test that is done before cancer symptoms start. Screening can helpto identify cancer at an early stage, when the cancer can be treated more easily. The recommended prostate cancer screening test is a blood test called the prostate-specific antigen (PSA) test. PSA is a protein that is made in the prostate. As you age, your prostate naturally produces more PSA. Abnormally high PSA levels may be caused by: Prostate cancer. An enlarged prostate that is not caused by cancer (benign prostatic hyperplasia, BPH). This condition is very common in older men. A prostate gland infection (prostatitis). Medicines to assist with hair growth, such as finasteride. Depending on the PSA results, you may need more tests, such as: A physical exam to check the size of your prostate gland. Blood and imaging tests. A procedure to remove tissue samples from your prostate gland for testing (biopsy). Who should have screening? Screening recommendations vary based on age. If you are younger than age 40, screening is not recommended. If you are age 40 54 and you have no risk factors, screening is not recommended. If you are younger than age 55, ask your health care provider if you need screening if you have oneof these risk factors: ?Being of -[place] descent. ?Having a family history of prostate cancer. If you are age 55 69, talk with your health care provider about your need for screening and how often screening should be done. If you are older than age 70, screening is not recommended. This is because the risks that screening can cause are greater than the benefits that it may provide (risks outweigh the benefits). If you are at high risk for prostate cancer, your health care provider may recommend that you have screenings more often or start screening at a younger age. You may be at high risk if you: Are older than age 55. Are -[place]. Have a father, brother, or uncle who has been diagnosed with prostate cancer. The risk may be higher if your family member's cancer occurred at an early age. What are the benefits of screening? There is a small chance that screening may lower your risk of dying from prostate cancer. The chance is small because prostate cancer is typically a slow-growing cancer, and most men with prostate cancer from a different cause. What are the risks of screening? The main risk of prostate cancer screening is diagnosing and treating prostate cancer that would never have caused any symptoms or problems (overdiagnosis and overtreatment). PSA screening cannot tell you if your PSA is high due to cancer or a different cause. A prostate biopsy is the only procedure to diagnose prostate cancer. Even the results of a biopsy may not tell you if your cancer needs jerry treated. Slow-growing prostate cancer may not need any treatment other than monitoring, so diagnosing and treating it may cause unnecessary stress or other side effects. A prostate biopsy may also cause: Infection or fever. A false negative. This is a result that shows that you do not have prostate cancer when you actually do have prostate cancer. Questions to ask your health care provider When should I start prostate cancer screening? What is my risk for prostate cancer? How often do I need screening? What type of screening tests do I need? How do I get my test results? What do my results mean? Do I need treatment? Contact a health care provider if: You have difficulty urinating. You have pain when you urinate or ejaculate. You have blood in your urine or semen. You have pain in your back or in the area of your prostate. You have trouble getting or maintaining an erection (erectile dysfunction, ED). Summary Prostate cancer is a common type of cancer in men. The prostate (prostate gland) is located below the bladder and in front of the rectum. This gland adds fluid to semen during ejaculation. Prostate cancer screening may identify cancer at an early stage, when the cancer can be treated more easily. The prostate-specific antigen (PSA) test is the recommended screening test for prostate cancer. Discuss the risks and benefits of prostate cancer screening with your health care provider. If you are age 70 or older, screening is likely to lead to more risks than benefits (risks outweigh the benefits). This information is not intended to replace advice given to you by your health care provider. Make sure you discuss any questions you have with your health care provider. Document Released: 06/18/2018 Document Revised: 08/20/2018 Document Reviewed: 06/18/2018 [employer] Patient Education 2020 [facility]. Follow Up Care 07/01/2022 11:24:12 With:SHAMIR LIAO, Pawel W, URL Address: [address] [place] [address]- When: Unknown [facility] 10-11-2022 Hospital Discharge instructions Patient Education 07/01/2022 10:42:24 Prostate Cancer Screening Prostate Cancer Screening The prostate is a walnut-sized gland that is located below the bladder and in front of the rectum in males. The function of the prostate (prostate gland) is to add fluid to semen during ejaculation. Prostate cancer is the second most common type of cancer in men. A screening test for cancer is a test that is done before cancer symptoms start. Screening can helpto identify cancer at an early stage, when the cancer can be treated more easily. The recommended prostate cancer screening test is a blood test called the prostate-specific antigen (PSA) test. PSA is a protein that is made in the prostate. As you age, your prostate naturally produces more PSA. Abnormally high PSA levels may be caused by: Prostate cancer. An enlarged prostate that is not caused by cancer (benign prostatic hyperplasia, BPH). This condition is very common in older men. A prostate gland infection (prostatitis). Medicines to assist with hair growth, such as finasteride. Depending on the PSA results, you may need more tests, such as: A physical exam to check the size of your prostate gland. Blood and imaging tests. A procedure to remove tissue samples from your prostate gland for testing (biopsy). Who should have screening? Screening recommendations vary based on age. If you are younger than age 40, screening is not recommended. If you are age 40 54 and you have no risk factors, screening is not recommended. If you are younger than age 55, ask your health care provider if you need screening if you have oneof these risk factors: ?Being of -[place] descent. ?Having a family history of prostate cancer. If you are age 55 69, talk with your health care provider about your need for screening and how often screening should be done. If you are older than age 70, screening is not recommended. This is because the risks that screening can cause are greater than the benefits that it may provide (risks outweigh the benefits). If you are at high risk for prostate cancer, your health care provider may recommend that you have screenings more often or start screening at a younger age. You may be at high risk if you: Are older than age 55. Are -[place]. Have a father, brother, or uncle who has been diagnosed with prostate cancer. The risk may be higher if your family member's cancer occurred at an early age. What are the benefits of screening? There is a small chance that screening may lower your risk of dying from prostate cancer. The chance is small because prostate cancer is typically a slow-growing cancer, and most men with prostate cancer from a different cause. What are the risks of screening? The main risk of prostate cancer screening is diagnosing and treating prostate cancer that would never have caused any symptoms or problems (overdiagnosis and overtreatment). PSA screening cannot tell you if your PSA is high due to cancer or a different cause. A prostate biopsy is the only procedure to diagnose prostate cancer. Even the results of a biopsy may not tell you if your cancer needs jerry treated. Slow-growing prostate cancer may not need any treatment other than monitoring, so diagnosing and treating it may cause unnecessary stress or other side effects. A prostate biopsy may also cause: Infection or fever. A false negative. This is a result that shows that you do not have prostate cancer when you actually do have prostate cancer. Questions to ask your health care provider When should I start prostate cancer screening? What is my risk for prostate cancer? How often do I need screening? What type of screening tests do I need? How do I get my test results? What do my results mean? Do I need treatment? Contact a health care provider if: You have difficulty urinating. You have pain when you urinate or ejaculate. You have blood in your urine or semen. You have pain in your back or in the area of your prostate. You have trouble getting or maintaining an erection (erectile dysfunction, ED). Summary Prostate cancer is a common type of cancer in men. The prostate (prostate gland) is located below the bladder and in front of the rectum. This gland adds fluid to semen during ejaculation. Prostate cancer screening may identify cancer at an early stage, when the cancer can be treated more easily. The prostate-specific antigen (PSA) test is the recommended screening test for prostate cancer. Discuss the risks and benefits of prostate cancer screening with your health care provider. If you are age 70 or older, screening is likely to lead to more risks than benefits (risks outweigh the benefits). This information is not intended to replace advice given to you by your health care provider. Make sure you discuss any questions you have with your health care provider. Document Released: 06/18/2018 Document Revised: 08/20/2018 Document Reviewed: 06/18/2018 [employer] Patient Education 2020 [facility]. Follow Up Care 06/02/2022 15:52:43 With:SHAMIR LIAO, Pawel W, URL Address: [address] [place], [place] [id number]- When: Unknown [facility] 09-06-2022 Evaluation + Plan note Future Scheduled Tests Laboratory* PSA Free & Total 05/27/22 [facility] 08-30-2022 Hospital Discharge instructions Patient Education 05/20/2022 15:31:47 Benign Prostatic Hyperplasia Benign Prostatic Hyperplasia Benign prostatic hyperplasia (BPH) is an enlarged prostate gland that is caused by the normal agingprocess and not by cancer. The prostate is a walnut-sized gland that is involved in the production of semen. It is located in front of the rectum and below the bladder. The bladder stores urine and the urethra is the tube that carries the urine out of the body. The prostate may get bigger as a man gets older. An enlarged prostate can press on the urethra. This can make it harder to pass urine. The build-up of urine in the bladder can cause infection. Back pressure and infection may progress to bladder damage and kidney (renal) failure. What are the causes? This condition is part of a normal aging process. However, not all men develop problems from this condition. If the prostate enlarges away from the urethra, urine flow will not be blocked. If it enlarges toward the urethra and compresses it, there will be problems passing urine. What increases the risk? This condition is more likely to develop in men over the age of 50 years. What are the signs or symptoms? Symptoms of this condition include: Getting up often during the night to urinate. Needing to urinate frequently during the day. Difficulty starting urine flow. Decrease in size and strength of your urine stream. Leaking (dribbling) after urinating. Inability to pass urine. This needs immediate treatment. Inability to completely empty your bladder. Pain when you pass urine. This is more common if there is also an infection. Urinary tract infection (UTI). How is this diagnosed? This condition is diagnosed based on your medical history, a physical exam, and your symptoms. Tests will also be done, such as: A post-void bladder scan. This measures any amount of urine that may remain in your bladder after you finish urinating. A digital rectal exam. In a rectal exam, your health care provider checks your prostate by putting a lubricated, gloved finger into your rectum to feel the back of your prostate gland. This exam detects the size of your gland and any abnormal lumps or growths. An exam of your urine (urinalysis). A prostate specific antigen (PSA) screening. This is a blood test used to screen for prostate cancer. An ultrasound. This test uses sound waves to electronically produce a picture of your prostate gland. Your health care provider may refer you to a specialist in kidney and prostate diseases (urologist). How is this treated? Once symptoms begin, your health care provider will monitor your condition (active surveillance or watchful waiting). Treatment for this condition will depend on the severity of your condition. Treatment may include: Observation and yearly exams. This may be the only treatment needed if your condition and symptoms are mild. Medicines to relieve your symptoms, including: ?Medicines to shrink the prostate. ?Medicines to relax the muscle of the prostate. Surgery in severe cases. Surgery may include: ?Prostatectomy. In this procedure, the prostate tissue is removed completely through an open incision or with a laparoscope or robotics. ?Transurethral resection of the prostate (TURP). In this procedure, a tool is inserted through the opening at the tip of the penis (urethra). It is used to cut away tissue of the inner core of the prostate. The pieces are removed through the same opening of the penis. This removes the blockage. ?Transurethral incision (TUIP). In this procedure, small cuts are made in the prostate. This lessens the prostate's pressure on the urethra. ?Transurethral microwave thermotherapy (TUMT). This procedure uses microwaves to create heat. The heat destroys and removes a small amount of prostate tissue. ?Transurethral needle ablation (TUNA). This procedure uses radio frequencies to destroy and remove a small amount of prostate tissue. ?Interstitial laser coagulation (ILC). This procedure uses a laser to destroy and remove a small amount of prostate tissue. ?Transurethral electrovaporization (TUVP). This procedure uses electrodes to destroy and remove a small amount of prostate tissue. ?Prostatic urethral lift. This procedure inserts an implant to push the lobes of the prostate away from the urethra. Follow these instructions at home: Take wzud-lse-yusagjr and prescription medicines only as told by your health care provider. Monitor your symptoms for any changes. Contact your health care provider with any changes. Avoid drinking large amounts of liquid before going to bed or out in public. Avoid or reduce how much caffeine or alcohol you drink. Give yourself time when you urinate. Keep all follow-up visits as told by your health care provider. This is important. Contact a health care provider if: You have unexplained back pain. Your symptoms do not get better with treatment. You develop side effects from the medicine you are taking. Your urine becomes very dark or has a bad smell. Your lower abdomen becomes distended and you have trouble passing your urine. Get help right away if: You have a fever or chills. You suddenly cannot urinate. You feel lightheaded, or very dizzy, or you faint. There are large amounts of blood or clots in the urine. Your urinary problems become hard to manage. You develop moderate to severe low back or flank pain. The flank is the side of your body between the ribs and the hip. These symptoms may represent a serious problem that is an emergency. Do not wait to see if the symptoms will go away. Get medical help right away. Call your local emergency services (911 in the [place] Do not drive yourself to the hospital. Summary Benign prostatic hyperplasia (BPH) is an enlarged prostate that is caused by the normal aging process and not by cancer. An enlarged prostate can press on the urethra. This can make it hard to pass urine. This condition is part of a normal aging process and is more likely to develop in men over the age of 50 years. Get help right away if you suddenly cannot urinate. This information is not intended to replace advice given to you by your health care provider. Make sure you discuss any questions you have with your health care provider. Document Released: 09/07/2006 Document Revised: 08/02/2019 Document Reviewed: 10/12/2017 [employer] Patient Education 2020 [facility]. 05/19/2022 22:47:23 Obesity, Adult Obesity, Adult Obesity is the condition of having too much total body fat. Being overweight or obese means that your weight is greater than what is considered healthy for your body size. Obesity is determined by a measurement called BMI. BMI is an estimate of body fat and is calculated from height and weight. Foradults, a BMI of 30 or higher is considered obese. Obesity can lead to other health concerns and major illnesses, including: Stroke. Coronary artery disease (CAD). Type 2 diabetes. Some types of cancer, including cancers of the colon, breast, uterus, and gallbladder. Osteoarthritis. High blood pressure (hypertension). High cholesterol. Sleep apnea. Gallbladder stones. Infertility problems. What are the causes? Common causes of this condition include: Eating daily meals that are high in calories, sugar, and fat. Being born with genes that may make you more likely to become obese. Having a medical condition that causes obesity, including: ?Hypothyroidism. ?Polycystic ovarian syndrome (PCOS). ?Binge-eating disorder. ?[place] syndrome. Taking certain medicines, such as steroids, antidepressants, and seizure medicines. Not being physically active (sedentary lifestyle). Not getting enough sleep. Drinking high amounts of sugar-sweetened beverages, such as soft drinks. What increases the risk? The following factors may make you more likely to develop this condition: Having a family history of obesity. Being a woman of descent. Being a man of descent. Living in an area with limited access to: ?Best, recreation centers, or sidewalks. ?Healthy food choices, such as grocery stores and [employer] markets. What are the signs or symptoms? The main sign of this condition is having too much body fat. How is this diagnosed? This condition is diagnosed based on: Your BMI. If you are an adult with a BMI of 30 or higher, you are considered obese. Your waist circumference. This measures the distance around your waistline. Your skinfold thickness. Your health care provider may gently pinch a fold of your skin and measureit. You may have other tests to check for underlying conditions. How is this treated? Treatment for this condition often includes changing your lifestyle. Treatment may include some or all of the following: Dietary changes. This may include developing a healthy meal plan. Regular physical activity. This may include activity that causes your heart to beat faster (aerobicexercise) and strength training. Work with your health care provider to design an exercise program that works for you. Medicine to help you lose weight if you are unable to lose 1 pound a week after 6 weeks of healthy eating and more physical activity. Treating conditions that cause the obesity (underlying conditions). Surgery. Surgical options may include gastric banding and gastric bypass. Surgery may be done if: ?Other treatments have not helped to improve your condition. ?You have a BMI of 40 or higher. ?You have life-threatening health problems related to obesity. Follow these instructions at home: Eating and drinking Follow recommendations from your health care provider about what you eat and drink. Your health care provider may advise you to: ?Limit fast food, sweets, and processed snack foods. ?Choose low-fat options, such as low-fat milk instead of whole milk. ?Eat 5 or more servings of fruits or vegetables every day. ?Eat at home more often. This gives you more control over what you eat. ?Choose healthy foods when you eat out. ?Learn to read food labels. This will help you understand how much food is considered 1 serving. ?Learn what a healthy serving size is. ?Keep low-fat snacks available. ?Limit sugary drinks, such as soda, fruit juice, sweetened iced tea, and flavored milk. Drink enough water to keep your urine pale yellow. Do not follow a fad diet. Fad diets can be unhealthy and even dangerous. Physical activity Exercise regularly, as told by your health care provider. ?Most adults should get up to 150 minutes of moderate-intensity exercise every week. ?Ask your health care provider what types of exercise are safe for you and how often you should exercise. Warm up and stretch before being active. Cool down and stretch after being active. Rest between periods of activity. Lifestyle Work with your health care provider and a dietitian to set a weight-loss goal that is healthy and reasonable for you. Limit your screen time. Find ways to reward yourself that do not involve food. Do not drink alcohol if: ?Your health care provider tells you not to drink. ?You are , may be , or are planning to become . If you drink alcohol: ?Limit how much you use to: ?0 1 drink a day for women. ?0 2 drinks a day for men. ?Be aware of how much alcohol is in your drink. In the [place] one drink equals one 12 oz bottle of beer (355 mL), one 5 oz glass of wine (148 mL), or one 1 oz glass of hard liquor (44 mL). General instructions Keep a weight-loss journal to keep track of the food you eat and how much exercise you get. Take hynt-zkt-fwezeyg and prescription medicines only as told by your health care provider. Take vitamins and supplements only as told by your health care provider. Consider joining a support group. Your health care provider may be able to recommend a support group. Keep all follow-up visits as told by your health care provider. This is important. Contact a health care provider if: You are unable to meet your weight loss goal after 6 weeks of dietary and lifestyle changes. Get help right away if you are having: Trouble breathing. Suicidal thoughts or behaviors. Summary Obesity is the condition of having too much total body fat. Being overweight or obese means that your weight is greater than what is considered healthy for your body size. Work with your health care provider and a dietitian to set a weight-loss goal that is healthy and reasonable for you. Exercise regularly, as told by your health care provider. Ask your health care provider what types of exercise are safe for you and how often you should exercise. This information is not intended to replace advice given to you by your health care provider. Make sure you discuss any questions you have with your health care provider. Document Released: 10/15/2005 Document Revised: 05/12/2019 Document Reviewed: 05/12/2019 [employer] Patient Education 2020 [facility]. Follow Up Care 05/01/2022 09:20:12 With:Hank MARTINEZ MD, FAM Address: When: only if needed Comments:needs labs with nurse soon please [facility] Evaluation + Plan note Future Appointments Appointment Date:05/27/2022 09:20:00 AM Scheduled Provider: Location:[facility] Appointment Type:FM Nurse Visit Future Scheduled Tests Laboratory* PSA Screen, Total 05/20/22 * Glucose Fasting 05/20/22 * Lipid Panel 05/20/22 [facility] Evaluation + Plan note Future Appointments Appointment Date:07/16/2022 11:30:00 AM Scheduled Provider: Location:[facility] Appointment Type:Urology CALL PAT FT Appointment Date:07/23/2022 11:15:00 AM Scheduled Provider: Location:[facility] Appointment Type:Urology FT Appointment Date:07/23/2022 11:15:00 AM Scheduled Provider: [facility] Prostate Urology (FT) Appointment Date:08/12/2022 10:30:00 AM Scheduled Provider:Pawel GARCIA MD Location:[facility] Appointment Type:URO Office Visit Future Scheduled Tests Laboratory* PSA Free & Total 05/27/22 Radiology* US Prostate, [facility] 07/23/22 [facility] Evaluation + Plan note Future Appointments Appointment Date:03/03/2023 11:45:00 AM Scheduled Provider:Pawel GARCIA MD Location:[facility] Appointment Type:URO Office Visit Future Scheduled Tests Laboratory* PSA Free & Total 05/27/22 * PSA Free & Total 01/19/23 [facility] Evaluation + Plan note Future Appointments Appointment Date:09/07/2023 12:30:00 PM Scheduled Provider:Sonal Ocampo MD Location:[facility] Appointment Type:URO Office Visit Future Scheduled Tests Laboratory* PSA Free & Total 01/19/23 [facility] Evaluation note* Diagnosis Laceration of left wrist, initial encounter- Primary documented in this encounter [facility] [employer] Work Phone: evaluation noteNo assessment information available [facility] Work Phone: Hospital course Narrative No data available for this section [facility] Hospital Discharge instructions No data available for this section [facility] Hospital Discharge instructions* Attachments The following attachments cannot be sent through Care Everywhere. * Hand Laceration: Stitches (Japanese) [facility] [employer] [facility] Work Phone: progress note No data available for this section [facility] Summary Purpose Family History No Family History Records Found No data available for this section No Family History Records FoundNo Family History Records Found No data available for this section Advance Directives Advance Directive Response Recorded Date/ Time Advance Directives No May 4:27pm Advance Directive Response Recorded Date/ Time Advance Directives No May 3:27pm Chief Complaint and Reason for Visit Chief Complaint R97.20 N42.31 Reason for Referral Referred by: Sonal Ocampo MD. Additional Source Comments Care Team (unrecognized sect ion and content) Personnel Name: Hank MARTINEZ MD Address: Address: [address] [place] [address] [place], [place] [address] [employer] Relationship Specialty Start Date End Date Hank Martinez MD [address] [place] [address] [place] [id number] PCP - General Family Medicine 12/23/22 Team Status: Active Member Role Status Dates Aston Martinez MD Primary Care Provider Active Team Status: Inactive Member Role Status Dates Sonal Ocampo MD Attending Provider Active Aston Martinez MD Primary Care Provider Active Reason for Visit (unrecogniz ed section and content) Reason Comments Laceration Left hand laceration from sheet metal Scheduled Active and Recently Administ ered Medications (unrecognized section and content) Medication Order 12/21/2022 12/22/2022 12/23/2022 lidocaine 1 % injection 10 mL (COMPLETED) 10 mL, IntraDERmal, ONCE, 1 dose, On Thu12/23/22 at 1600 1600 (Given - Provid er: Genesis Batista RN) (unrecognized sect ion and content) No Status Records FoundNo Status Records FoundNo Status Records Found INFORMATION SOURCE (unrecogn ized section and content) DATE CREATED AUTHOR 12/26/2022 Adali arauz DATE CREATED AUTHOR AUTHOR'S ORGANIZ ATION 09/04/2023 [facility] DATE CREATED AUTHOR AUTHOR'S ORGANIZ ATION 09/07/2023 [facility] Goals (unrecognized section and content) Goals may be documented in a n alternate section FOR RECORDS PERTAINING TO PATIENTS WHO ARE OR HAVE BEEN ENROLLED IN A CHEMICAL DEPENDENCY/SUBSTANCEABUSE PROGRAM, SOME INFORMATION MAY BE OMITTED. This clinical summary was aggregated from multiple sources. Caution should be exercised in using it in the provision of clinical care. This summary normalizes information from multiple sources, and as a consequence, information in this document may materially change the coding, format and clinical context of patient data. In addition, data may be omitted in some cases. CLINICAL DECISIONS SHOULD BE BASED ON THE PRIMARY CLINICAL RECORDS. [employer] [facility]. provides no warranty or guarantee of the accuracy or completeness of information in this document.
== END 2023-07-29 15:45 | disposition home or self-care (01) ==
PROVIDERS: Visit Provider Urology
PROC: (CPT 55700; principal; 2023-07-29 13:45)
DX: C61 Malignant neoplasm of prostate (principal); R97.20 Elevated prostate specific antigen [PSA]; E11.9 Type 2 diabetes mellitus without complications; N40.0 Benign prostatic hyperplasia without lower urinary tract symptoms
CPT/HCPCS: 55700; 36415; 88305; 88344; J2704